=== PATIENT | female | born 1965 | race Caucasian/White ===

== ENCOUNTER 2017-02-08 14:05 | Inpatient (IN) | payer OTHER ==
--- NOTE | ~2017-02-08 | EGD ---
EGD REPORT [facility] [address] [address] NAME: RHODA ESTRADA : 61 STATUS : ADM IN PAT#: [id number] AGE: 51 ADM/REG DATE : 02/08/17 MR#: [id number] REPORT SERV DATE: 02/16/17 DICTATED BY: LIANNE SHEPPARD DATE: 02/16/17 REPORT STATUS : Draft [facility] DATE: 02/16/17 Pulmonology Patient Name: Rhoda Estrada Procedure Date: 02/16/2017 11:04 AM Date of : 1965 Attending MD: KARAN SHEPPARD MD Procedure Date No Time: 02/16/2017 Procedure: EBUS Navigational Bronchoscopy Indications: Left lower lobe mass, Mediastinal adenopathy Providers: KARAN SHEPPARD MD Referring MD: WAQAS BIRD MD Medicines: Lidocaine 2% 20 mL Complications: No immediate complications Procedure: Pre-Anesthesia Assessment: - A History and Physical has been performed. Patient meds and allergies have been reviewed. The risks and benefits of the procedure and the sedation options and risks were discussed with the patient. All questions were answered and informed consent was obtained. Patient identification and proposed procedure were verified prior to the procedure by the physician and the nurse in the pre-procedure area in the procedure room. Mental Status Examination: alert and oriented. Airway Examination: normal oropharyngeal airway. Respiratory Examination: clear to auscultation. CV Examination: normal and RRR, no murmurs, no S3 or S4. ASA Grade Assessment: IV - A patient with severe systemic disease that is a constant threat to life. After reviewing the risks and benefits, the patient was deemed in satisfactory condition to undergo the procedure. The anesthesia plan was to use general anesthesia. Immediately prior to administration of medications, the patient was re-assessed for adequacy to receive sedatives. The heart rate, respiratory rate, oxygen saturations, blood pressure, adequacy of pulmonary ventilation, and response to care were monitored throughout the procedure. The physical status of the patient was re-assessed after the procedure. After obtaining informed consent, the BF [id number] was introduced through the mouth, via the endotracheal tube (the patient was intubated for the procedure) and advanced to the tracheobronchial tree. the Bronchoscope was introduced through the mouth, via the endotracheal tube (the patient was intubated for the procedure) and advanced to the tracheobronchial tree. The procedure was accomplished without difficulty. The patient EGD REPORT [address] [address] NAME: RHODA ESTRADA : 61 STATUS : ADM IN PAT#: [id number] AGE: 51 ADM/REG DATE : 02/08/17 MR#: [id number] REPORT SERV DATE: 02/16/17 DICTATED BY: LIANNE SHEPPARD DATE: 02/16/17 REPORT STATUS : Draft TRANSCRIBED BY: [employer] DATE: 02/16/17 tolerated the procedure well. The patient tolerated the procedure well. Findings: The endotracheal tube is in good position. The visualized portion of the trachea is of normal caliber. The janet is sharp. The tracheobronchial tree was examined to at least the first subsegmental level. Bronchial mucosa and anatomy are normal; there are no endobronchial lesions, and no secretions. EBUS TBNA of lymph node level 11R x 4 passes for cytology EBUS TBNA of lymph node level 7 x 4] passes for cytology EBUS TBNA of lymph node level 11L x 10 passes for cytology Using SuperDimension Edge catheter 180, peripheral probe EBUS 17s, and fluoroscopy, I performed the following biopsies: LLL lung nodule transbronchial needle aspirates x 6 passes for cytology LLL lung nodule transbronchial brush biopsy x 3 pass for cytology and cultures LLL lung nodule transbronchial forcep biopsies x 6 passes for histopathology Bronchoalveolar lavage was performed in the left lower lobe of the lung and sent for routine cytology. 180 mL of fluid were instilled. 30 mL were returned. The return was blood-tinged and cellular. Bronchoalveolar lavage was performed in the right upper lobe of the lung and sent for cell count, cytology, bacterial culture, viral smears \\T\\ culture, and fungal and AFB analysis. 60 mL of fluid were instilled. 30 mL were returned. Impression: Rapid On-Site Evaluation (JONY): Preliminary cytology is "atypical, favor reactive inflammatory changes, no tumor seen" (final results are pending). Recommendation: - Await test results. - Chest X-ray. - Follow up with pulmonary consults tomorrow. - Continue current treatment. Attending Participation: I personally performed the entire procedure. KARAN SHEPPARD MD 02/16/2017 12:42 PM This report has been signed electronically. Number of Addenda: 0 Note Initiated On: 02/16/2017 11:04 AM [address] [address]
--- NOTE | ~2017-02-08 | CN ---
Consultation Report [facility] [address] [place]. [address] NAME: KRISTEN ESTRADA : 61 STATUS : ADM IN [facility]#: [id number] AGE: 51 ADM/REG DATE : 02/08/17 MR#: [id number] REPORT SERV DATE: 02/15/17 DICTATED BY: JENNIFER BIRD DATE: 02/15/17 REPORT STATUS : Draft TRANSCRIBED BY: MODL DATE: 02/15/17 PULMONARY CONSULTATION DATE OF CONSULTATION: 02/15/2017 REASON FOR CONSULTATION: Abnormal CT scan of the chest. HISTORY OF PRESENT ILLNESS: Ms. Estrada is a 51-year-old white female, smoker with a history of COPD and organizing pneumonia on biopsy of a right lung nodule done on 04/22/2015, who was admitted with pneumonia and a COPD exacerbation. Pulmonary was consulted secondary to mediastinal lymphadenopathy and lung nodules noted on a CT angiogram of the chest done this admission. The patient is complaining of poor appetite without weight loss as well as malaise, increased dyspnea, and cough for the past several months. She states she had a marked increase in her dyspnea and developed a cough productive of yellow sputum just prior to admission. Her symptoms have improved markedly since she was hospitalized after treating with bronchodilators, systemic and nebulized steroids, as well as antibiotics. As an outpatient, the patient was poorly compliant with her pulmonary medications. She states she took Spiriva and Combivent irregularly due to medication expense. As noted above, she had a CT-guided biopsy of a right lung nodule done on 04/22/2015. That biopsy revealed organizing pneumonia. She did not have outpatient followup with Pulmonary, but did have a repeat CT angiogram of the chest done on 05/26/2015 when she was admitted with dyspnea. At that time, she was noted to have scattered focal areas of ground-glass opacities. She did not have followup chest imaging as recommended. She denies any lung cancer screening or CT scans of the chest. She is not followed by a power shovel operator outpatient. PAST MEDICAL HISTORY: 1. Previous CT-guided biopsy that revealed organizing pneumonia as noted above. 2. Smoking/tobacco addiction. 3. COPD. 4. Hypertension. 5. GERD. 6. Previous appendectomy. 7. Previous tubal ligation. 8. Hypothyroidism. 9. Hyperlipidemia. 10.Anxiety/depression. FAMILY HISTORY: She denies a family history of pulmonary diseases, but states she suspects her smoker son has COPD. Consultation Report [address] [place]. [address] NAME: KRISTEN ESTRADA : 61 STATUS : ADM IN PAT#: [id number] AGE: 51 ADM/REG DATE : 02/08/17 MR#: [id number] REPORT SERV DATE: 02/15/17 DICTATED BY: JENNIFER BIRD DATE: 02/15/17 REPORT STATUS : Draft TRANSCRIBED BY: LILIANA DATE: 02/15/17 SOCIAL HISTORY: Ms. Estrada currently smokes one and a half packs of cigarettes per day. She states she has smoked up to two packs of cigarettes per day and has been a smoker for 39 years. She states she has a history of exposure to dust and chemicals associated with prior employment in a [employer] and then in the [employer]. She denies ethanol intake, past/present drug use, or chewing tobacco. She is and has two living sons and one son who in a motor vehicle accident. MEDICATIONS: Outpatient and inpatient medications were reviewed and are as documented in the record. As noted above, she was on Spiriva and Combivent intermittently as an outpatient. ALLERGIES: SHE DENIES MEDICATION ALLERGIES. REVIEW OF SYSTEMS: A 12-point system review was conducted and is remarkable for the symptoms as described in the history of present illness. PHYSICAL EXAMINATION: VITAL SIGNS: Temperature 97.8 degrees, heart rate 88, blood pressure 134/86, respiratory rate 17, oxygen saturation 93% on supplemental oxygen at a flow rate of 3 L/minute. GENERAL: Ill-appearing white female. Alert, oriented, in no apparent distress. HEENT: Normocephalic and atraumatic. There is no scleral icterus. The conjunctivae are clear. The oropharynx is clear. Poor dentition with numerous missing teeth. NECK: Supple. No lymphadenopathy was noted. LUNGS: There were diminished breath sounds at both bases. There are faint end-expiratory wheezes throughout. There are minimal bibasilar crackles. No rhonchi were noted. HEART: Regular rate and rhythm. No ectopy. ABDOMEN: Soft, nontender, nondistended. There are normal bowel sounds in all four quadrants. NEUROLOGICAL: A limited exam was conducted and was found to be nonfocal. BILATERAL EXTREMITIES: No clubbing, cyanosis, or edema was noted. SKIN: No rashes were noted. IMAGING: The chest x-ray done this admission revealed a right upper lobe infiltrate with left hilar atelectasis/consolidation. The CT angiogram of the chest done on 02/14/2017 revealed bilateral hilar lymphadenopathy, right upper lobe nodular infiltrate, left apical nodule and a left lower lobe nodular infiltrate, suspicious for carcinoma. ASSESSMENT AND PLAN: Ms. Estrada is a 51-year-old white female, smoker with an abnormal CT scan of the chest, suspicious for cancer as described above. PLAN: Bronchoscopy per interventional power shovel operator, Dr. Domenico Campuzano, hopefully to be done tomorrow. The patient was counseled extensively regarding the procedure and possible Consultation Report [address] [address] NAME: KRISTEN ESTRADA : 61 STATUS : ADM IN [facility]#: [id number] AGE: 51 ADM/REG DATE : 02/08/17 MR#: [id number] REPORT SERV DATE: 02/15/17 DICTATED BY: JENNIFER BIRD DATE: 02/15/17 REPORT STATUS : Draft TRANSCRIBED BY: MODL DATE: 02/15/17 complications. She does agree to proceed with bronchoscopy. With regard to her COPD and recent pneumonia, she is doing well with her current treatment. She is on Brovana via nebulization here as an inpatient. Recommend discontinuing Brovana and starting her on Anoro daily and would discharge her on this medication. We will ask the case sealer to assist the patient in obtaining coupons for the medication. She was counseled extensively regarding the importance of compliance with her medications. She should be discharged with an albuterol rescue inhaler. Recommend home oxygen evaluation as she remains hypoxic despite adequate treatment for COPD and pneumonia. She was counseled for approximately five minutes regarding the importance of smoking cessation. Further recommendations to follow after bronchoscopy results are available. PS/MODL Jennifer Bird M.D. / [id number] CC: Oneil Mason MD
--- NOTE | ~2017-02-08 | IDS ---
Interim Discharge Summary [facility] [address] [place]. [address] NAME: KRISTEN GALVIN : 61 STATUS : ADM IN [facility]#: [id number] AGE: 51 ADM/REG DATE : 02/08/17 MR#: [id number] REPORT SERV DATE: 02/13/17 DICTATED BY: CECILLE IZAGUIRRE DATE: 02/13/17 REPORT STATUS : Draft TRANSCRIBED BY: MODL DATE: 02/13/17 ADMISSION DATE: 02/08/2017 DISCHARGE DATE: DIAGNOSES: 1. Chronic obstructive pulmonary disease exacerbation. 2. Pneumonia. 3. Bxwyy-np-wprxjix hypoxic and hypercapnic respiratory failure. 4. Hypertension. 5. Hypothyroidism. 6. Tobacco abuse. HOSPITALISTS: Dr. Montez, Dr. Andrew Rubio, Dr. Izaguirre. HOSPITAL COURSE: Please see H and P dictated by Dr. Montez. This is a 51-year-old female with a past medical history of COPD and hypertension, and tobacco abuse ongoing, presented with shortness of breath and dyspnea on exertion. She was admitted to the Hospitalist Service with COPD exacerbation and signs of pneumonia. She was started on antibiotics and bronchodilators as well as steroid. The patient had slow progression, did require BiPAP intermittently, and now has been tapered off BiPAP. She did have some intermittent anxiety, which worsened some of her respiratory issues. She was initially treated by Dr. Rubio, and later by Dr. Izaguirre initiating on 02/11/2017. The patient is improving and has had a slow progression, but overall is improved. Also, has been educated on tobacco abuse. She will require home O2. The nurses have been ambulating the patient in the hallway as tolerated. Expect possible discharge tomorrow based on patient's clinical status. The patient will be followed by Dr. Mason, who will attend to the patient's care. [facility]/LILIANA Cecille Izaguirre M.D. / [id number] CC: Cecille Izaguirre M.D.
--- NOTE | ~2017-02-08 | HP ---
History And Physical [facility] [id number] [place]. [address] NAME: KRISTEN GALVIN : 61 STATUS : ADM Cecily PAT#: [id number] AGE: 51 ADM/REG DATE : 02/08/17 MR#: [id number] REPORT SERV DATE: 02/08/17 DICTATED BY: SAMANTHA MONTEZ DATE: 02/08/17 REPORT STATUS : Draft TRANSCRIBED BY: MODMike DATE: 02/08/17 DATE OF ADMISSION: 02/08/2017 CHIEF COMPLAINT: Shortness of breath. HISTORY OF PRESENT ILLNESS: The patient is a 51-year-old female with past medical history of COPD, non-O2 dependent, additionally one and half pack per day smoking history, who presents after having continuous and progressive shortness of breath despite using inhaler. The patient reports that her symptoms have been constant, moderate severity with decreased exercise tolerance. No pain or radiating symptoms but did have increased shortness of breath with mild sputum production. No fevers, chills, nausea, or vomiting. Symptoms are worsening with deep breathing with audible wheeze. There are no relieving symptoms. The patient does report symptoms are still currently present, although she does use an inhaler. She has used multiple different inhalers which son at bedside reports she has required multiple inhalers faster than she should probably require. REVIEW OF SYSTEMS: A 10-point review of systems negative except for that noted in the HPI. PAST MEDICAL HISTORY: Recently did have pneumonia shot, does have history of COPD, hypertension, reflux, depression, anxiety, hypothyroidism, and arthritis. SURGICAL HISTORY: Tubal and appendectomy. FAMILY HISTORY: Unknown as the patient's mother at 2, unaware of father's history. SOCIAL HISTORY: No alcohol, is 1-1/2 pack per day smoker. No illicits. MEDICATIONS: Still pending. Does use albuterol. O2 sats 94% on 2 L. PHYSICAL EXAMINATION: VITAL SIGNS: Blood pressure 110/81, temperature 97.6, pulse 98, respirations 18. GENERAL: Elderly than stated age but in no acute distress. EYES: No scleral icterus. EOMI. ENT: Nares patent. Tongue midline. RESPIRATORY: Bilateral diffuse wheeze with rhonchi. CHEST: Mildly increased AP diameter. CV: Tachycardic, no rubs. No pedal edema. GI: Soft, nontender, nondistended. Bowel sounds positive. : Deferred. MUSCULOSKELETAL: Moves all extremities x4. SKIN: Warm, dry with wrinkling, does have wrinkling of facial skin also. LYMPH: No cervical or supraclavicular lymphadenopathy. HEME: No bleeding or bruising. NEURO: Alert and oriented. No asterixis. PSYCH: Appropriate mood and affect, pleasant but does report that she is somewhat tired. History And Physical [address] [address] NAME: KRISTEN GALVIN : 61 STATUS : ADM Cecily PAT#: [id number] AGE: 51 ADM/REG DATE : 02/08/17 MR#: [id number] REPORT SERV DATE: 02/08/17 DICTATED BY: SAMANTHA MONTEZ DATE: 02/08/17 REPORT STATUS : Draft TRANSCRIBED BY: LILIANA DATE: 02/08/17 DATA: EKG; heart rate of 102 with QTc 484, right axis changes. Also noted in February of 2016. Labs reveal BNP 180.5. Sodium 129, potassium 3.6, chloride 91, bicarb 31, BUN creatinine 5 and 0.46, glucose 103, troponin negative. Magnesium 2.1. Calcium 9.1. CBC grossly within normal limits. Portable chest, there is new to February 2016 a right upper lobe pneumonia, increased pulmonary markings, possible congestive failure. The pH 7.39, pCO2 of 51, pO2 of 62, bicarb 30.4. ASSESSMENT AND PLAN: 1. Acute chronic obstructive pulmonary disease exacerbation. 2. Right pneumonia, new. 3. Hypertension. 4. Tobacco use. 5. Noncompliance. 6. Hypothyroidism. 7. Hyponatremia. PLAN: 1. For acute COPD exacerbation, I counseled again to stop smoking. Placed on O2 DuoNeb, flutter valve, IV steroids, IV Levaquin for anti-inflammatory component additionally. Chest x-ray noted for right upper lobe pneumonia which additionally could be worsening symptoms, has history of pulmonary nodules. 2. Right pneumonia, IV Levaquin, cultures pending. 3. Hypertension, on medications. 4. Tobacco use. Nicotine patch. 5. Noncompliance history. Does have poor technique. We will have RT discuss inhaler technique as the patient does have occasional mild spots, two small, what appears to be albuterol inhaler spots on the upper mouth. We will need to continue reinforcement, will need spacer. Additionally add flutter valve. 6. Hypothyroidism, on replacement. 7. Hyponatremia. Check osmolality with gentle IV fluids. However, repeat sodium in 6 to 8 hours to monitor for response and get urine and serum osmolality and sodium and creatinine, possible SIADH component given fairly chronic pulmonary history. All questions answered with the patient and discussed with family at bedside. DDN/MODL Samantha Montez MD / [id number] CC: History And Physical [address] [address] NAME: KRISTEN GALVIN : 61 STATUS : ADM Cecily PAT#: [id number] AGE: 51 ADM/REG DATE : 02/08/17 MR#: [id number] REPORT SERV DATE: 02/08/17 DICTATED BY: SAMANTHA MONTEZ DATE: 02/08/17 REPORT STATUS : Draft TRANSCRIBED BY: MODL DATE: 02/08/17 Samantha Montez MD
--- NOTE | ~2017-02-08 | DS ---
Discharge Summary [facility] [address] [place]. [address] NAME: KRISTEN GALVIN : 61 STATUS : DIS IN PAT#: [id number] AGE: 51 ADM/REG DATE : 02/08/17 MR#: [id number] REPORT SERV DATE: 02/18/17 DICTATED BY: FOX MASON DATE: 02/17/17 REPORT STATUS : Draft TRANSCRIBED BY: MODL DATE: 02/17/17 ADMISSION DATE: 02/08/2017 DISCHARGE DATE: 02/17/2017 REASON FOR ADMISSION: Acute on chronic COPD exacerbation and acute hypoxic hypercapnic respiratory failure. HISTORY OF PRESENT ILLNESS: Please refer Dr. Hector Montez's history and physical on 02/08/2017, for complete details regarding the patient's admission. In brief, the patient was admitted to the Hospital Service for management of the above. HOSPITAL COURSE: From admission to 02/13/2017, please refer Dr. Margy Bustillo's interim summary. In brief, Dr. Bustillo had managed the patient for the first several days and diagnosed with acute on chronic COPD exacerbation, pneumonia, and acute hypoxic and hypercapnic respiratory failure. She was started on IV steroids and doxycycline. She has been on intermittent BiPAP during that time. She was clinically improving. Hospital course from 02/14/2017 to present, I assumed care of this patient from Dr. Bustillo; at which point in time, the patient had been on 3 to 4 L of nasal cannula, she would desaturate pretty quickly with ambulation. Given the fact that she had been hospitalized for five days on doxycycline and high-dose steroids and requiring a high amount of oxygen, I obtained a CT angio of her chest on 02/14/2017, which showed suspicious spiculated irregular nodule infiltrate, superior segment of the left lower lobe with extension up to the major fissure with tenting of adjacent major fissure. There is a left infrahilar and right hilar adenopathy which may represent metastatic disease versus reactive adenopathy. There is an irregular nodular infiltrate in the right upper lobe with central lucency considered suspicious for malignancy. Given these findings, the fact that she had ongoing tobacco abuse, Pulmonary Medicine was consulted, Dr. Campuzano performed an EBUS navigation bronchoscopy on 02/16/2017, which demonstrated mostly inflammatory changes. No malignancy was seen. However, final pathology report is pending. We were able to wean down the patient to 2 L. her oxygenation had improved. I did increase her steroids from 40 mg of prednisone to 60 mg of prednisone. The patient has reached maximal hospitalization. She did qualify for oxygen as her O2 sats were 81% on room air. We will be discharging her in stable condition to follow up with Dr. Martinez in 10 days and to continue high-dose steroids. DISCHARGE DIAGNOSES: 1. Acute hypoxic and hypercapnic respiratory failure, resolving, but now on 2 L of nasal cannula. 2. Acute on chronic obstructive pulmonary disease exacerbation. 3. Ongoing tobacco abuse. 4. Possible organizing pneumonia flare. 5. Spiculated nodule. 6. Generalized anxiety disorder. 7. Hypothyroidism. 8. Hypertension. Discharge Summary [address] [address] NAME: KRISTEN GALVIN : 61 STATUS : DIS IN PAT#: [id number] AGE: 51 ADM/REG DATE : 02/08/17 MR#: [id number] REPORT SERV DATE: 02/18/17 DICTATED BY: FOX MASON DATE: 02/17/17 REPORT STATUS : Draft TRANSCRIBED BY: LILIANA DATE: 02/17/17 PROCEDURES: Include chest x-ray and CT angio of the chest. CONSULTATION: With Dr. Martinez and Dr. Campuzano, EBUS bronchoscopy. DISCHARGE MEDICATIONS: Include methadone 50 mg once a day, Spiriva daily, Anoro Ellipta 62.5/25 mcg one puff daily, prednisone 60 mg once a day until seen by Dr. Martinez, and ProAir p.r.n. for wheezing. The patient will follow up Dr. Martinez in 10 days. Spending over 30 minutes discharge planning and coordination of care. She will also be arranged with home oxygen. HATTIE/LILIANA Fox Mason MD / [id number] CC: MD Jennifer Ramos M.D.
[2017-02-08 14:01] LABS: ALLENS TEST Pos; BE (BASE EXCESS) 4.2 MEQ/L (0 +/- 2.5); CARBOXYHEMOGLOBIN 10.3 % (0-3); DEVICE NC; HCO3 (ACTUAL BICARBONATE) 30.4 MEQ/L (23-27); HEMOBLOGIN CONTENT 15.2 G/DL (12-16); INSTRUMENT SERIAL # 8087; O2 CONTENT 17.7 VOL% (18-24); OPERATOR ID 35188; PCO2 (CO2 TENSION) 51 MMHG (35-45); PO2 (O2 TENSION) 62 MMHG (79-93); SAMPLE Arterial; pH 7.39 (7.37-7.43)
[~2017-02-08 14:05] MED LIST: BLUE INH; BP MEDICATION PO; CHOLESTEROL MED PO; COMBIVENT RESPIM4 GM PO; DULERA 200 MCG/13 GM INH; HYCODAN1 M1 PO; LEVAQUIN750 MG PO; LEVOTHROID150 MCG PO; LEVOTHYROXIN150 MCG PO; LIPITOR80 MG PO; NORCO1 TA1 PO; P1 PO; P10 PO; P20 PO; PROVHFA INH; SINGULAIR1 PO; SPIRIVA INH; THYROID MEDICATION PO; TRAZ100 PO; VENTOLIN HFA INH; VERELAN120 MG PO; ZOL100 PO; ZOLOFT PO
[2017-02-08 14:42] LABS: BASOPHILS 0.1 %; BASOPHILS ABSOLUTE 0.01 10/3/uL (0.0-0.16); EOSINOPHILS 0 %; ER CBC TAT 0 Hrs 07 Mins; HEMATOCRIT 44.1 % (36.0-48.0); HEMOGLOBIN 15.5 g/dL (12.0-16.0); IMMATURE GRANULOCYTES 0.2 %; IMMATURE GRANULOCYTES ABSOLUTE 0.02 10/3/uL (0.0-0.11); LYMPHOCYTES 9.5 %; LYMPHOCYTES ABSOLUTE 0.82 10/3/uL (0.67-4.30); MEAN CORPUS HGB CONC 35.1 g/dL (32.0-36.0); MEAN CORPUSCULAR HEMOGLOB 32.5 pg (26.0-34.0); MEAN CORPUSCULAR VOLUME 92.5 fL (80-100); MEAN PLATELET VOLUME 9.9 fL (9.2-13.0); MONOCYTES 6.1 %; MONOCYTES ABSOLUTE 0.53 10/3/uL (0.21-1.20); NEUTROPHILS 84.1 %; NEUTROPHILS ABSOLUTE 7.28 10/3/uL (2.02-8.40); PLATELET COUNT 261 10/3/uL (150-400); RBC DISTRIBUTION WIDTH 13.4 % (12.0-16.0); RED CELL COUNT 4.77 10/6/uL (4.0-5.6); WHITE BLOOD CELLS 8.7 10/3/uL (4.5-10.5)
[2017-02-08 14:43] LABS: MANUAL DIFF NO %
[2017-02-08 14:49] LABS: PARTIAL THROMBO TIME 34.2 SEC (22.5-37.2); PROTIME (NOT ORD) 12.9 SEC (12.0-14.5)
[2017-02-08 14:57] LABS: BUN (BLOOD UREA NITROGEN) 5 MG/DL (6-23); CALCIUM, SERUM 9.1 MG/DL (8.5-10.4); CHEST PAIN PROFILE TAT 0 Hrs 22 Mins; CHLORIDE, SERUM 91 MMOL/L (96-112); CREATININE 0.46 MG/DL (0.55-1.02); GFR AFRICAN AMERICAN 132 ML/MIN (>=60); GFR NON AFRICAN AMERICAN 114 ML/MIN (>=60); POTASSIUM, SERUM 3.6 MMOL/L (3.5-5.3); SODIUM, SERUM 129 MMOL/L (135-148); TROPONIN I <0.02 NG/ML (<0.05)
[2017-02-08 15:01] LABS: CO2 (CARBON DIOXIDE) 31 MMOL/L (24-34); GLUCOSE, SERUM 103 MG/DL (60-99)
[2017-02-08] MEDS ORDERED: PROVHFA INH (16:10)
[2017-02-08] MEDS ORDERED: SPIRIVA INH (16:11)
[2017-02-08] MEDS ORDERED: METHATAB10 PO (16:16)
[2017-02-08 19:00] LABS: ASCORBIC ACID (UR NOT ORDER) NEG (NEG); BILIRUBIN, URINE NEGATIVE (NEG); KETONE, URINE NEGATIVE (NEG); LEUKOCYTE ESTERASE(NOT OR NEG (NEG); WBC (NOT ORDERED) (RFLEX) < 1 (0-5)
[2017-02-08 20:36] LABS: CREATININE, URINE 19.6 MG/DL
[2017-02-08 22:52] LABS: BUN (BLOOD UREA NITROGEN) 5 MG/DL (6-23); CALCIUM, SERUM 8.5 MG/DL (8.5-10.4); CHLORIDE, SERUM 93 MMOL/L (96-112); CO2 (CARBON DIOXIDE) 29 MMOL/L (24-34); CREATININE 0.41 MG/DL (0.55-1.02); GFR AFRICAN AMERICAN 137 ML/MIN (>=60); GFR NON AFRICAN AMERICAN 118 ML/MIN (>=60); GLUCOSE, SERUM 87 MG/DL (60-99); POTASSIUM, SERUM 4.2 MMOL/L (3.5-5.3); SODIUM, SERUM 132 MMOL/L (135-148)
[2017-02-09 10:12] LABS: ULTRASENSITIVE TSH 1.92 MCIU/ML (0.358-3.740)
[2017-02-09 12:11] LABS: PROCALCITONIN 0.08 ng/mL (<0.5)
[2017-02-09 19:31] LABS: INFLUENZA A SCREEN NEGATIVE (NEGATIVE); INFLUENZA B SCREEN NEGATIVE (NEGATIVE)
[2017-02-10 07:05] LABS: BASOPHILS 0.1 %; BASOPHILS ABSOLUTE 0.01 10/3/uL (0.0-0.16); EOSINOPHILS 0 %; HEMOGLOBIN 15.7 g/dL (12.0-16.0); IMMATURE GRANULOCYTES 0.3 %; IMMATURE GRANULOCYTES ABSOLUTE 0.03 10/3/uL (0.0-0.11); LYMPHOCYTES ABSOLUTE 0.31 10/3/uL (0.67-4.30); MEAN CORPUSCULAR HEMOGLOB 31.3 pg (26.0-34.0); MONOCYTES 6.1 %; MONOCYTES ABSOLUTE 0.62 10/3/uL (0.21-1.20); NEUTROPHILS 90.5 %; NEUTROPHILS ABSOLUTE 9.25 10/3/uL (2.02-8.40); PLATELET COUNT 326 10/3/uL (150-400); RBC DISTRIBUTION WIDTH 13.3 % (12.0-16.0); RED CELL COUNT 5.01 10/6/uL (4.0-5.6); WHITE BLOOD CELLS 10.2 10/3/uL (4.5-10.5)
[2017-02-10 07:08] LABS: HEMATOCRIT 48.6 % (36.0-48.0); MANUAL DIFF NO %; MEAN CORPUS HGB CONC 32.3 g/dL (32.0-36.0)
[2017-02-10 07:18] LABS: BUN (BLOOD UREA NITROGEN) 4 MG/DL (6-23); CHLORIDE, SERUM 93 MMOL/L (96-112); CREATININE 0.53 MG/DL (0.55-1.02); GFR AFRICAN AMERICAN 126 ML/MIN (>=60); GFR NON AFRICAN AMERICAN 108 ML/MIN (>=60); POTASSIUM, SERUM 4.1 MMOL/L (3.5-5.3); SGOT(AST) 94 U/L (5-40); SGPT(ALT) 34 U/L (5-65); SODIUM, SERUM 135 MMOL/L (135-148); TOTAL PROTEIN 7.4 G/DL (6.0-8.5)
[2017-02-10 07:19] LABS: A/G RATIO 0.6 (0.7-1.9); ALBUMIN 2.7 G/DL (3.5-5.0); ALKALINE PHOSPHATASE 134 U/L (45-117); CO2 (CARBON DIOXIDE) 34 MMOL/L (24-34); GLOBULIN 4.7 G/DL (2.5-4.1); GLUCOSE, SERUM 113 MG/DL (60-99); TOTAL BILIRUBIN 0.2 MG/DL (0-1.2)
[2017-02-10 09:42] LABS: BE (BASE EXCESS) 4.5 MEQ/L (0 +/- 2.5); CARBOXYHEMOGLOBIN 0.5 % (0-3); DEVICE Nasal Cannula 3l; HCO3 (ACTUAL BICARBONATE) 31.6 MEQ/L (23-27); HEMOBLOGIN CONTENT 15.9 G/DL (12-16); INSTRUMENT SERIAL # 35151; METHEMOGLOBIN 0.4 % (0-3); O2 CONTENT 18.9 VOL% (18-24); OPERATOR ID 14472; PCO2 (CO2 TENSION) 56 MMHG (35-45); PO2 (O2 TENSION) 52 MMHG (79-93); SAMPLE Arterial; pH 7.37 (7.37-7.43)
[2017-02-11 04:41] LABS: BE (BASE EXCESS) 7.7 MEQ/L (0 +/- 2.5); CARBOXYHEMOGLOBIN 0.5 % (0-3); DEVICE NC; HCO3 (ACTUAL BICARBONATE) 35.3 MEQ/L (23-27); HEMOBLOGIN CONTENT 16.8 G/DL (12-16); INSTRUMENT SERIAL # 11843; METHEMOGLOBIN 0.3 % (0-3); O2 CONTENT 20.5 VOL% (18-24); OPERATOR ID 32193; PCO2 (CO2 TENSION) 60 MMHG (35-45); PO2 (O2 TENSION) 55 MMHG (79-93); SAMPLE Arterial; pH 7.39 (7.37-7.43)
[2017-02-11 06:10] LABS: BASOPHILS 0 %; EOSINOPHILS 0 %; HEMATOCRIT 46.2 % (36.0-48.0); HEMOGLOBIN 15.1 g/dL (12.0-16.0); IMMATURE GRANULOCYTES 0.6 %; IMMATURE GRANULOCYTES ABSOLUTE 0.04 10/3/uL (0.0-0.11); LYMPHOCYTES 4.5 %; LYMPHOCYTES ABSOLUTE 0.29 10/3/uL (0.67-4.30); MEAN CORPUS HGB CONC 32.7 g/dL (32.0-36.0); MEAN CORPUSCULAR HEMOGLOB 31.5 pg (26.0-34.0); MEAN CORPUSCULAR VOLUME 96.3 fL (80-100); MEAN PLATELET VOLUME 9.9 fL (9.2-13.0); MONOCYTES 7.2 %; MONOCYTES ABSOLUTE 0.46 10/3/uL (0.21-1.20); NEUTROPHILS 87.7 %; NEUTROPHILS ABSOLUTE 5.64 10/3/uL (2.02-8.40); PLATELET COUNT 284 10/3/uL (150-400); RBC DISTRIBUTION WIDTH 13.4 % (12.0-16.0); WHITE BLOOD CELLS 6.4 10/3/uL (4.5-10.5)
[2017-02-11 06:14] LABS: MANUAL DIFF NO %
[2017-02-11 06:26] LABS: A/G RATIO 0.6 (0.7-1.9); ALBUMIN 2.7 G/DL (3.5-5.0); ALKALINE PHOSPHATASE 136 U/L (45-117); BUN (BLOOD UREA NITROGEN) 4 MG/DL (6-23); CALCIUM, SERUM 8.9 MG/DL (8.5-10.4); CHLORIDE, SERUM 92 MMOL/L (96-112); CO2 (CARBON DIOXIDE) 36 MMOL/L (24-34); CREATININE 0.53 MG/DL (0.55-1.02); GFR AFRICAN AMERICAN 126 ML/MIN (>=60); GFR NON AFRICAN AMERICAN 108 ML/MIN (>=60); GLOBULIN 4.4 G/DL (2.5-4.1); GLUCOSE, SERUM 131 MG/DL (60-99); POTASSIUM, SERUM 4.3 MMOL/L (3.5-5.3); SGOT(AST) 125 U/L (5-40); SGPT(ALT) 47 U/L (5-65); SODIUM, SERUM 136 MMOL/L (135-148); TOTAL BILIRUBIN 0.3 MG/DL (0-1.2); TOTAL PROTEIN 7.1 G/DL (6.0-8.5)
[2017-02-14 16:29] LABS: CREATININE 0.73 MG/DL (0.55-1.02)
[2017-02-16 07:11] LABS: BASOPHILS 0.1 %; BASOPHILS ABSOLUTE 0.01 10/3/uL (0.0-0.16); EOSINOPHILS 0.5 %; EOSINOPHILS ABSOLUTE 0.05 10/3/uL (0.0-0.53); HEMATOCRIT 46.6 % (36.0-48.0); HEMOGLOBIN 15.4 g/dL (12.0-16.0); IMMATURE GRANULOCYTES 1.2 %; IMMATURE GRANULOCYTES ABSOLUTE 0.13 10/3/uL (0.0-0.11); LYMPHOCYTES 22.5 %; LYMPHOCYTES ABSOLUTE 2.41 10/3/uL (0.67-4.30); MEAN CORPUSCULAR HEMOGLOB 31.2 pg (26.0-34.0); MEAN CORPUSCULAR VOLUME 94.5 fL (80-100); MEAN PLATELET VOLUME 9.2 fL (9.2-13.0); MONOCYTES 6.6 %; MONOCYTES ABSOLUTE 0.71 10/3/uL (0.21-1.20); NEUTROPHILS 69.1 %; NEUTROPHILS ABSOLUTE 7.41 10/3/uL (2.02-8.40); PLATELET COUNT 312 10/3/uL (150-400); RBC DISTRIBUTION WIDTH 13.7 % (12.0-16.0); RED CELL COUNT 4.93 10/6/uL (4.0-5.6)
[2017-02-16 07:12] LABS: WHITE BLOOD CELLS 10.7 10/3/uL (4.5-10.5)
[2017-02-16 07:13] LABS: MANUAL DIFF NO %
[2017-02-16 07:16] LABS: INTERNATIONAL NORMAL RATI 1.1 UNITS (-); PARTIAL THROMBO TIME 24.8 SEC (22.5-37.2); PROTIME (NOT ORD) 13.7 SEC (12.0-14.5)
[2017-02-16 07:24] LABS: BUN (BLOOD UREA NITROGEN) 7 MG/DL (6-23); CALCIUM, SERUM 8.5 MG/DL (8.5-10.4); CHLORIDE, SERUM 99 MMOL/L (96-112); CO2 (CARBON DIOXIDE) 36 MMOL/L (24-34); CREATININE 0.75 MG/DL (0.55-1.02); GFR AFRICAN AMERICAN 105 ML/MIN (>=60); GFR NON AFRICAN AMERICAN 91 ML/MIN (>=60); POTASSIUM, SERUM 4.1 MMOL/L (3.5-5.3); SODIUM, SERUM 141 MMOL/L (135-148)
[2017-02-16 07:26] LABS: GLUCOSE, SERUM 71 MG/DL (60-99)
[2017-02-16 13:26] LABS: ALLENS TEST Pos; BE (BASE EXCESS) 0.6 MEQ/L (0 +/- 2.5); CARBOXYHEMOGLOBIN 0.4 % (0-3); DEVICE SM; HCO3 (ACTUAL BICARBONATE) 27.5 MEQ/L (23-27); INSTRUMENT SERIAL # 11843; METHEMOGLOBIN 0.5 % (0-3); O2 CONTENT 23.6 VOL% (18-24); OPERATOR ID 19104; PCO2 (CO2 TENSION) 52 MMHG (35-45); PO2 (O2 TENSION) 164 MMHG (79-93); SAMPLE Arterial; pH 7.34 (7.37-7.43)
[2017-02-16 16:41] LABS: BD FL LYMPH (NOT ORD) 5 %; BD FL SOURCE (NOT ORD) BAL-RUL; BF BASO (NOT OF) 0 %; BF LARGE MONONUCLEAR 17 %; BF TOTAL CELL CT (NOT ORD 2433 /MM3; BODY FLUID EOS (NOT ORD) 0 %; BODY FLUID RBC (NOT ORD) 7000 /MM3; BODY FLUID SEG (NOT ORD) 78 %
[2017-02-16 16:43] LABS: BD FL LYMPH (NOT ORD) 14 %; BD FL SOURCE (NOT ORD) BAL-LLL; BF BASO (NOT OF) 0 %; BF LARGE MONONUCLEAR 34 %; BF TOTAL CELL CT (NOT ORD 1708 /MM3; BODY FLUID EOS (NOT ORD) 0 %; BODY FLUID RBC (NOT ORD) 20000 /MM3; BODY FLUID SEG (NOT ORD) 52 %
[2017-02-17 04:12] LABS: BE (BASE EXCESS) 8.3 MEQ/L (0 +/- 2.5); CARBOXYHEMOGLOBIN 1.1 % (0-3); HCO3 (ACTUAL BICARBONATE) 34.5 MEQ/L (23-27); HEMOBLOGIN CONTENT 15.2 G/DL (12-16); INSTRUMENT SERIAL # 8083; METHEMOGLOBIN 0.2 % (0-3); O2 CONTENT 20.7 VOL% (18-24); OPERATOR ID 17537; PCO2 (CO2 TENSION) 53 MMHG (35-45); PO2 (O2 TENSION) 97 MMHG (79-93); SAMPLE Arterial; pH 7.43 (7.37-7.43)
[2017-02-17] MEDS ORDERED: PREDNISONE PO (11:19)
[2017-02-17] MEDS ORDERED: ANOROELLIPTA INH (11:20)
[2017-02-17] MEDS ORDERED: ATV.5 PO (15:27)
[2017-06-18] MEDS ORDERED: SPIRIVA INH (09:51)
[2017-06-18] MEDS ORDERED: ACET500CAP PO (09:52)
[2017-06-18] MEDS ORDERED: ASA5GR PO (09:53)
[2017-06-18] MEDS ORDERED: HABIT21 TOP (09:54)
[2017-06-23] MEDS ORDERED: SUCR PO (17:10)
[2017-06-23] MEDS ORDERED: PROTONIX PO (17:10)
[2017-06-23] MEDS ORDERED: LEVAQUIN750 MG PO (17:18)
== END 2017-02-17 16:29 | disposition home or self-care (01) | DRG 189 ==
LOC: ER 14:05 → 5SO 15:45
PROVIDERS: Emergency Medicine; Hospitalist; Internal Medicine; Student in an Organized Health Care Education/Training Program
PROC: 0B9B8ZX Drainage of Left Lower Lobe Bronchus, Via Natural or Artificial Opening Endoscopic, Diagnostic (ICD-10-PCS; principal; 2017-02-16 11:47)
PROC: 0B948ZX Drainage of Right Upper Lobe Bronchus, Via Natural or Artificial Opening Endoscopic, Diagnostic (ICD-10-PCS; 2017-02-16 13:00)
DX: J96.21 Acute and chronic respiratory failure with hypoxia (principal); J18.9 Pneumonia, unspecified organism; J44.1 Chronic obstructive pulmonary disease with (acute) exacerbation; E87.1 Hypo-osmolality and hyponatremia; J96.22 Acute and chronic respiratory failure with hypercapnia; I10 Essential (primary) hypertension; F17.210 Nicotine dependence, cigarettes, uncomplicated; K21.9 Gastro-esophageal reflux disease without esophagitis; F32.9 Major depressive disorder, single episode, unspecified; F41.9 Anxiety disorder, unspecified; E03.9 Hypothyroidism, unspecified; M19.90 Unspecified osteoarthritis, unspecified site; Z90.49 Acquired absence of other specified parts of digestive tract; Z98.890 Other specified postprocedural states; Z91.19 Patient's noncompliance with other medical treatment and regimen; Z79.899 Other long term (current) drug therapy
CPT/HCPCS: 36600; 71010; 71275; 80048; 80053; 81001; 82330; 82565; 82570; 82803; 82805; 82947; 83735; 83880; 83930; 83935; 84132; 84145; 84295; 84300; 84443; 84484; 85014; 85025; 85610; 85730; 87015; 87040; 87070; 87102; 87116; 87205; 87449; 87804; 88112; 88172; 88173; 88177; 88305; 88333; 88341; 88342; 89051; 93005; 93306; 94640; 94660; 96374; 96375; 99285; A9270-GY; C1725; J1956; J2250; J2370; J2405; J2710; J2920; J2930; J3010; Q9967

== ENCOUNTER 2017-03-31 14:10 | Inpatient (IN) | payer OTHER ==
--- NOTE | ~2017-03-31 | IDS ---
Interim Discharge Summary [facility] [address] [place]. [address] NAME: KRISTEN GALVIN : 61 STATUS : ADM IN PAT#: [id number] AGE: 51 ADM/REG DATE : 03/31/17 MR#: [id number] REPORT SERV DATE: 04/06/17 DICTATED BY: LOR GUTIERREZ DATE: 04/06/17 REPORT STATUS : Draft TRANSCRIBED BY: MODL DATE: 04/06/17 ADMISSION DATE: 03/31/2017 DISCHARGE DATE: DATE OF TRANSFER TO THE ICU: 04/03/2017. DATE OF INTERIM SUMMARY: 04/06/2017. INTERIM DIAGNOSES: 1. Acute hypercapnic respiratory failure. 2. Acute chronic obstructive pulmonary disease exacerbation. 3. Chronic cryptogenic organizing pneumonia. 4. Small-cell lung cancer. 5. Pancytopenia. 6. Acute renal failure. 7. Acute encephalopathy. ICU COURSE: Please see dictated H and P for full patient presentation and history. BRIEF SUMMARY: The patient is a 51-year-old white female with past medical history of metastatic small cell lung cancer, followed by Dr. Juno Aquino as well as chronic COPD and cryptogenic organizing pneumonia. She was initially admitted to the Hospitalist Service back on 03/31/2017 with acute hypercapnic respiratory failure and acute COPD exacerbation. She was placed on empiric antibiotics at that time as well as steroids and bronchodilators. The patient also has chronic pain and was continued on her methadone as well as her other chronic narcotics. Apparently, the patient was having some bouts of hyperactive delirium overnight on 04/03/2017 and was given multiple doses of Ativan for agitation. Then early on the morning of 04/03/2017, she had worsening lethargy with worsening hypercapnic respiratory failure and had to be transferred to the ICU for continuous BiPAP. Her narcotics were briefly held as well as her benzodiazepine and she was controlled from an agitation standpoint with a Precedex drip. She remained on continuous BiPAP for approximately 24 hours with improvement in her hypercapnia and has since been able to come off continues BiPAP and now is using it only at night. From her COPD standpoint, we have continued her IV steroids as well as her bronchodilators. We are changing her Zosyn today to Levaquin and she had no growth so far of any pathogens. She had some mild acute renal failure, which has since resolved. Her encephalopathy has also resolved and she is now alert oriented x3 and much better from a neurologic standpoint. She was weaned off the Precedex drip yesterday. Today, she is stable and should be able to go out to the floor. We will hand over her care to the hospitalist when she does move out. Please call if you have any questions. OBDULIA/LILIANA Lor Gutierrez MD Interim Discharge Summary [address] [address] NAME: KRISTEN GALVIN : 61 STATUS : ADM IN PAT#: [id number] AGE: 51 ADM/REG DATE : 03/31/17 MR#: [id number] REPORT SERV DATE: 04/06/17 DICTATED BY: LOR GUTIERREZ DATE: 04/06/17 REPORT STATUS : Draft TRANSCRIBED BY: LILIANA DATE: 04/06/17 / [id number] CC: Navi Casillas II, MD UNKNOWN
--- NOTE | ~2017-03-31 | HP ---
History And Physical [id number] [place]. [address] NAME: KRISTEN GALVIN : 61 STATUS : ADM IN [facility]#: [id number] AGE: 51 ADM/REG DATE : 03/31/17 MR#: [id number] REPORT SERV DATE: 03/31/17 DICTATED BY: EULALIA CASILLAS II DATE: 03/31/17 REPORT STATUS : Draft TRANSCRIBED BY: MODL DATE: 03/31/17 DATE OF ADMISSION: 03/31/2017 PRIMARY ONCOLOGIST: Dr. Juno Aquino. CHIEF COMPLAINT: Shortness of breath. HISTORY OF PRESENT ILLNESS: The patient is a 51-year-old female with a history of COPD; chronic hypoxic respiratory failure, on 2 L; hypertension; organizing pneumonia; and recently diagnosed small cell carcinoma who presented to [facility] this morning after waking up today with severe shortness of breath and confusion. Per the family, she was started on chemotherapy about a week or two ago and has been doing well only on 2 L and getting around the house okay until this morning when she was noted to have severe respiratory distress and confusion. The family subsequently brought the patient to the ER where she was found to be in respiratory distress, hypoxic with severe diffuse wheezing and begun on breathing treatments and antibiotics given a white count of 0.5. Hospital Service was consulted for admission. Otherwise, currently, the patient notes improvement in her breathing since being in the ER. She is currently tolerating BiPAP and blood gas in the ER was fairly unremarkable with a pH of 7.46, pCO2 of 41, and a pO2 of 119 on nonrebreather. Otherwise, she denies any fevers, chills, or chest pain. Denies any nausea, vomiting, or diarrhea. She has had some upper intermittent abdominal pain, worse with movement and breathing. She is fairly confused and intermittently agitated. Most of the history was provided by the family at bedside. REVIEW OF SYSTEMS: Otherwise, fairly unobtainable except for the above history. PAST MEDICAL HISTORY: 1. Small-cell carcinoma, recently diagnosed, status post cycle 1 of chemotherapy, followed by Dr. Juno Aquino. 2. COPD with chronic respiratory failure, on 2 L O2 at home. 3. Ongoing tobacco use. 4. History of organizing pneumonia. 5. History of hypertension. 6. Gastroesophageal reflux disease. 7. Hypothyroidism. 8. Hyperlipidemia. 9. Anxiety and depression. SURGICAL HISTORY: Appendectomy, tubal ligation, and scheduled for Port-A-Cath in the coming week or two. FAMILY HISTORY: Denies any family history of cancer and otherwise unaware of the patient's parent's history. SOCIAL HISTORY: The patient denies any alcohol, but is about a 1-1/2 pack-a-day smoker. History And Physical [address] [address] NAME: KRISTEN GALVIN : 61 STATUS : ADM IN [facility]#: [id number] AGE: 51 ADM/REG DATE : 03/31/17 MR#: [id number] REPORT SERV DATE: 03/31/17 DICTATED BY: EULALIA CASILLAS II DATE: 03/31/17 REPORT STATUS : Draft TRANSCRIBED BY: LILIANA DATE: 03/31/17 Denies any drug use. She currently lives with her son and has been fairly ambulatory up until today. HOME MEDICATIONS: Albuterol, Wellbutrin, Klonopin, methadone, Zofran, Percocet, Phenergan, and Anoro Ellipta. PHYSICAL EXAMINATION: VITAL SIGNS: O2 saturations 93% on 2 to 4 L, blood pressure 99/74, temperature 98.4, pulse 128. GENERAL: The patient is alert, but only oriented to person, no acute distress. NECK: Supple. Nontender. No lymphadenopathy or thyromegaly. HEENT: Moist mucous membranes. Pupils are equal, round, and reactive to light. Conjunctivae clear. RESPIRATORY: Lungs showed diffuse end-expiratory wheezing with minimal rhonchi and mild tachypnea. CARDIOVASCULAR: Tachycardic with a regular rhythm. No murmurs, rubs, or gallops. ABDOMEN: Soft, nontender, nondistended. Normoactive bowel sounds. EXTREMITIES: No cyanosis, clubbing, or edema. SKIN: No lesions, rashes, or wounds. NEURO: No focal deficits. LABORATORY DATA: Sodium 130, potassium 4.5, chloride 93, CO2 of 31, BUN 14, creatinine 0.96, calcium 9.1, albumin 2.7. T bilirubin 1.3, alkaline phosphatase 226, ALT 30, AST 96. WBC 0.5, hemoglobin 10.6, platelets 153. ANC 90. Lactate 2. RADIOGRAPHIC DATA: Chest x-ray with similar appearance of chest with bilateral upper lobe irregular infiltrate masses superimposed upon underlying chronic lung disease. ASSESSMENT AND PLAN: The patient is a 51-year-old female with: 1. Acute on chronic hypoxic respiratory failure. 2. Acute exacerbation of chronic obstructive pulmonary disease with possible underlying pneumonia or organizing pneumonia flare. For the above, we will treat with nebulizers q.4 hours Solu-Medrol, Brovana, and Pulmicort. We will also continue the Zosyn that was started in the ER and also add vancomycin given she has been hospitalized recently and neutropenic and tachycardic, technically meeting systemic inflammatory response syndrome criteria. Concerning for a possible sepsis. 3. Small-cell carcinoma, status post cycle 1 of chemo, per Oncology note, treat supportively. 4. Neutropenia. We will monitor. 5. Metabolic encephalopathy. Advised supportive care and treat the underlying. 6. Hyponatremia. We will provide gentle IV fluids. 7. History of organizing pneumonia. 8. Hypertension. Continue home medications. 9. Lovenox for deep venous thrombosis prophylaxis. The patient is full code. History And Physical [address] [address] NAME: KRISTEN GALVIN : 61 STATUS : ADM IN [facility]#: [id number] AGE: 51 ADM/REG DATE : 03/31/17 MR#: [id number] REPORT SERV DATE: 03/31/17 DICTATED BY: EULALIA CASILLAS II DATE: 03/31/17 REPORT STATUS : Draft TRANSCRIBED BY: LILIANA DATE: 03/31/17 TARI/LILIANA Eulalia Casillas II, MD / [id number] CC: Eulalia Casillas II, MD
--- NOTE | ~2017-03-31 | DS ---
Discharge Summary [address] [place]. [address] NAME: KRISTEN GALVIN : 61 STATUS : DIS IN PAT#: [id number] AGE: 51 ADM/REG DATE : 03/31/17 MR#: [id number] REPORT SERV DATE: 04/09/17 DICTATED BY: FOX MASON DATE: 04/09/17 REPORT STATUS : Draft TRANSCRIBED BY: MODL DATE: 04/09/17 ADMISSION DATE: 03/31/2017 DISCHARGE DATE: 04/09/2017 REASON FOR ADMISSION: Updkv-oe-shstkbs COPD exacerbation and tyrug-py-nwlqfyu hypoxic respiratory failure. HISTORY OF PRESENT ILLNESS: Please refer to Dr. Casillas's history and physical dated 03/31/2017, for complete details regarding the patient's admission. In brief, the patient was admitted to the Hospitalist Service for management of her COPD exacerbation. HOSPITAL COURSE: From admission until 04/06/2017, please refer to Dr. Gutierrez's interim summary. In brief, the patient was initially admitted to the floor but then transferred to the intensive care unit for hypoxic and hypercapnic respiratory failure needing to use BiPAP. She had been weaned off BiPAP and a Precedex drip had been initiated for her encephalopathy. She had received several days doses worth of IV antibiotics along with steroids. She was eventually weaned off BiPAP and her encephalopathy had resolved and then transferred to the floor on 04/06/2017. Hospital course from 04/06/2017 to present, I assumed care of this patient from Dr. Null on 04/08/2017, at which point her COPD exacerbation had resolved. She is back to her baseline mentally. She is saturating well on 2 L, which is her baseline. Hematology/Oncology continued to follow the patient. She is now stable and ready for discharge. DISCHARGE DIAGNOSES: Narvi-dj-ruigbov hypercapnic hypoxic respiratory failure, now resolved, back to baseline 2 L nasal cannula; sjten-xt-nysttzt chronic obstructive pulmonary disease exacerbation; chronic cryptogenic organizing pneumonia; recent diagnosis of small cell lung cancer, followed by Dr. Juno Aquino; pancytopenia; acute kidney injury, now resolved; metabolic encephalopathy, likely secondary to medications, now resolved. PROCEDURES: Include consultation with [facility], intensive care unit monitoring, chest x-ray. DISCHARGE MEDICATIONS: Include prednisone 40 mg once a day for four days, Wellbutrin 150 mg at bedtime, methadone 20 mg every 12 hours, Klonopin 1 g twice a day, albuterol p.r.n., Percocet p.r.n. pain, promethazine p.r.n. nausea, Zofran p.r.n. nausea, Anoro Ellipta daily. FOLLOWUP: The patient will follow up with Dr. Juno Aquino next week. DICTATED BY: MD HATTIE Ramos/LILIANA Discharge Summary [address] [address] NAME: KRISTEN GALVIN : 61 STATUS : DIS IN PAT#: [id number] AGE: 51 ADM/REG DATE : 03/31/17 MR#: [id number] REPORT SERV DATE: 04/09/17 DICTATED BY: FOX MASON DATE: 04/09/17 REPORT STATUS : Draft TRANSCRIBED BY: LILIANA DATE: 04/09/17 Fox Mason MD / [id number] CC: MD Juno Ramos M.D.
[2017-03-31 13:15] LABS: BASOPHILS 0 %; CHLORIDE, SERUM 93 MMOL/L (96-112); EOSINOPHILS 0 %; IMMATURE GRANULOCYTES 1.9 %; LYMPHOCYTES 63.5 %; LYMPHOCYTES ABSOLUTE 0.33 10/3/uL (0.67-4.30); MEAN CORPUS HGB CONC 33.8 g/dL (32.0-36.0); MEAN CORPUSCULAR HEMOGLOB 30.6 pg (26.0-34.0); MEAN PLATELET VOLUME 9.3 fL (9.2-13.0); MONOCYTES 19.2 %; NEUTROPHILS 15.4 %; NEUTROPHILS ABSOLUTE 0.08 10/3/uL (2.02-8.40); POTASSIUM, SERUM 4.5 MMOL/L (3.5-5.3)
[2017-03-31 13:16] LABS: ER CBC TAT 0 Hrs 00 Mins; HEMATOCRIT 31.4 % (36.0-48.0); HEMOGLOBIN 10.6 g/dL (12.0-16.0); MEAN CORPUSCULAR VOLUME 90.8 fL (80-100); PLATELET COUNT 163 10/3/uL (150-400); RED CELL COUNT 3.46 10/6/uL (4.0-5.6); SODIUM, SERUM 130 MMOL/L (135-148); WHITE BLOOD CELLS 0.5 10/3/uL (4.5-10.5)
[2017-03-31 13:17] LABS: IMMATURE GRANULOCYTES ABSOLUTE 0.01 10/3/uL (0.0-0.11); MANUAL DIFF NO %
[2017-03-31 13:19] LABS: A/G RATIO 0.5 (0.7-1.9); ALBUMIN 2.7 G/DL (3.5-5.0); CALCIUM, SERUM 9.1 MG/DL (8.5-10.4); CREATININE 0.96 MG/DL (0.55-1.02); GFR AFRICAN AMERICAN 78 ML/MIN (>=60); GFR NON AFRICAN AMERICAN 68 ML/MIN (>=60); GLUCOSE, SERUM 76 MG/DL (60-99); SGOT(AST) 96 U/L (5-40); SGPT(ALT) 30 U/L (5-65); TOTAL PROTEIN 7.7 G/DL (6.0-8.5)
[2017-03-31 13:21] LABS: ALKALINE PHOSPHATASE 226 U/L (45-117); BUN (BLOOD UREA NITROGEN) 14 MG/DL (6-23); CO2 (CARBON DIOXIDE) 31 MMOL/L (24-34); TOTAL BILIRUBIN 1.3 MG/DL (0-1.2)
[2017-03-31 13:42] LABS: ER DIFF TAT 0 Hrs 26 Mins; LYMPHOCYTES 64 %; LYMPHOCYTES ABSOLUTE (CALC) 0.32 10/3/uL (0.67-4.30); MONOCYTES 18 %; MONOCYTES ABSOLUTE (CALC) 0.09 10/3/uL (0.21-1.20); NEUTROPHILS ABSOLUTE (CALC) 0.09 10/3/uL (2.02-8.40); SEGMENTED NEUTROPHIL (0) 18 %; TOTAL NUCLEATED CELLS 50
[2017-03-31 13:43] LABS: PLATELET ESTIMATE ADQ (ADEQUATE); RBC MORPHOLOGY NORM (NORMAL)
[2017-03-31 13:50] LABS: PATH REVIEW YES
[~2017-03-31 14:10] MED LIST changes: +ANOROELLIPTA INH; +ATV.5 PO; +METHATAB10 PO; +PREDNISONE PO
[2017-03-31] MEDS ORDERED: DOLOPHINE10 MG PO (14:55)
[2017-03-31] MEDS ORDERED: PERCOCET 7.5/321 TAB PO (14:56)
[2017-03-31] MEDS ORDERED: ZOFRAN8 PO (14:57)
[2017-03-31] MEDS ORDERED: PR12.5 PO (14:57)
[2017-03-31] MEDS ORDERED: ATV1 PO (14:58)
[2017-03-31] MEDS ORDERED: WELLXL150 PO (14:58)
[2017-03-31] MEDS ORDERED: ANOROELLIPTA INH (14:59)
[2017-03-31] MEDS ORDERED: PROVHFA INH (14:59)
[2017-03-31] MEDS ORDERED: SPIRIVA INH (15:00)
[2017-03-31] MEDS ORDERED: ANORO ELLIPTA (15:10)
[2017-03-31 19:09] LABS: PROCALCITONIN 49.42 ng/mL (<0.5)
[2017-04-01 04:35] LABS: BE (BASE EXCESS) -2.6 MEQ/L (0 +/- 2.5); BIPAP 14/6 cm.H2O; CARBOXYHEMOGLOBIN 0.8 % (0-3); HCO3 (ACTUAL BICARBONATE) 22.3 MEQ/L (23-27); HEMOBLOGIN CONTENT 11.9 G/DL (12-16); INSTRUMENT SERIAL # 8083; METHEMOGLOBIN 0.1 % (0-3); O2 CONTENT 16.3 VOL% (18-24); OPERATOR ID 17537; PCO2 (CO2 TENSION) 39 MMHG (35-45); PO2 (O2 TENSION) 104 MMHG (79-93); SAMPLE Arterial; pH 7.38 (7.37-7.43)
[2017-04-01 04:59] LABS: HEMOGLOBIN 8.9 g/dL (12.0-16.0); MEAN CORPUS HGB CONC 33.5 g/dL (32.0-36.0); MEAN CORPUSCULAR HEMOGLOB 30.3 pg (26.0-34.0); MEAN CORPUSCULAR VOLUME 90.5 fL (80-100); MEAN PLATELET VOLUME 9.5 fL (9.2-13.0); PLATELET COUNT 121 10/3/uL (150-400); RBC DISTRIBUTION WIDTH 13.9 % (12.0-16.0); RED CELL COUNT 2.94 10/6/uL (4.0-5.6)
[2017-04-01 05:00] LABS: HEMATOCRIT 26.6 % (36.0-48.0); MANUAL DIFF YES %; WHITE BLOOD CELLS 0.5 10/3/uL (4.5-10.5)
[2017-04-01 05:06] LABS: BUN (BLOOD UREA NITROGEN) 11 MG/DL (6-23); CALCIUM, SERUM 9.1 MG/DL (8.5-10.4); CHLORIDE, SERUM 97 MMOL/L (96-112); CO2 (CARBON DIOXIDE) 28 MMOL/L (24-34); CREATININE 0.69 MG/DL (0.55-1.02); GFR AFRICAN AMERICAN 115 ML/MIN (>=60); GFR NON AFRICAN AMERICAN 99 ML/MIN (>=60); GLUCOSE, SERUM 129 MG/DL (60-99); POTASSIUM, SERUM 4.1 MMOL/L (3.5-5.3); SODIUM, SERUM 132 MMOL/L (135-148)
[2017-04-01 06:39] LABS: BAND NEUTROPHILS 8 %; EOSINOPHILS 1 %; EOSINOPHILS ABSOLUTE (CALC) 0.01 10/3/uL (0.0-0.53); IMMATURE GRANS ABSOLUTE (CALC) 0.01 10/3/uL (0.0-0.11); LYMPHOCYTES 55 %; LYMPHOCYTES ABSOLUTE (CALC) 0.28 10/3/uL (0.67-4.30); METAMYELOCYTES 1 %; MONOCYTES 22 %; MONOCYTES ABSOLUTE (CALC) 0.11 10/3/uL (0.21-1.20); NEUTROPHILS ABSOLUTE (CALC) 0.11 10/3/uL (2.02-8.40); SEGMENTED NEUTROPHIL (0) 13 %; TOTAL NUCLEATED CELLS 100
[2017-04-01 06:41] LABS: HELMET CELLS OCC (0-2/OIF); PLATELET ESTIMATE SLT DEC (ADEQUATE); TEARDROP SHAPED RBCS OCC (0-2/OIF)
[2017-04-01 06:42] LABS: POLYCHROMASIA 1+ (2-5/OIF) (0-1/OIF); SPHEROCYTES OCC (0-2/OIF)
[2017-04-02 08:38] LABS: HEMATOCRIT 26.8 % (36.0-48.0); MEAN CORPUS HGB CONC 33.6 g/dL (32.0-36.0); MEAN CORPUSCULAR HEMOGLOB 30.7 pg (26.0-34.0); MEAN CORPUSCULAR VOLUME 91.5 fL (80-100); MEAN PLATELET VOLUME 9.8 fL (9.2-13.0); PLATELET COUNT 128 10/3/uL (150-400); RBC DISTRIBUTION WIDTH 13.8 % (12.0-16.0); RED CELL COUNT 2.93 10/6/uL (4.0-5.6)
[2017-04-02 08:43] LABS: MANUAL DIFF YES %; WHITE BLOOD CELLS 0.6 10/3/uL (4.5-10.5)
[2017-04-02 08:46] LABS: BUN (BLOOD UREA NITROGEN) 8 MG/DL (6-23); CALCIUM, SERUM 9.5 MG/DL (8.5-10.4); CHLORIDE, SERUM 100 MMOL/L (96-112); CO2 (CARBON DIOXIDE) 30 MMOL/L (24-34); CREATININE 0.56 MG/DL (0.55-1.02); GFR AFRICAN AMERICAN 123 ML/MIN (>=60); GFR NON AFRICAN AMERICAN 106 ML/MIN (>=60); GLUCOSE, SERUM 136 MG/DL (60-99); POTASSIUM, SERUM 4.3 MMOL/L (3.5-5.3); SODIUM, SERUM 132 MMOL/L (135-148)
[2017-04-02 10:06] LABS: BAND NEUTROPHILS 9 %; EOSINOPHILS 2 %; EOSINOPHILS ABSOLUTE (CALC) 0.01 10/3/uL (0.0-0.53); LYMPHOCYTES 41 %; LYMPHOCYTES ABSOLUTE (CALC) 0.25 10/3/uL (0.67-4.30); MONOCYTES 23 %; MONOCYTES ABSOLUTE (CALC) 0.14 10/3/uL (0.21-1.20); SEGMENTED NEUTROPHIL (0) 25 %; TOTAL NUCLEATED CELLS 100
[2017-04-02 10:07] LABS: PLATELET ESTIMATE SLT DEC (ADEQUATE); POLYCHROMASIA 1+ (2-5/OIF) (0-1/OIF)
[2017-04-02 10:08] LABS: TEARDROP SHAPED RBCS OCC (0-2/OIF)
[2017-04-02 10:21] LABS: ALLENS TEST Pos; BE (BASE EXCESS) 3.3 MEQ/L (0 +/- 2.5); CARBOXYHEMOGLOBIN 0.3 % (0-3); DEVICE NC; HCO3 (ACTUAL BICARBONATE) 30.9 MEQ/L (23-27); HEMOBLOGIN CONTENT 10.5 G/DL (12-16); INSTRUMENT SERIAL # 8083; METHEMOGLOBIN 0.2 % (0-3); OPERATOR ID 11901; PCO2 (CO2 TENSION) 64 MMHG (35-45); PO2 (O2 TENSION) 83 MMHG (79-93); SAMPLE Arterial
[2017-04-02 14:00] LABS: ALLENS TEST Pos; BE (BASE EXCESS) 2.7 MEQ/L (0 +/- 2.5); BIPAP 16/6 cm.H2O; CARBOXYHEMOGLOBIN 0.4 % (0-3); HCO3 (ACTUAL BICARBONATE) 29.2 MEQ/L (23-27); HEMOBLOGIN CONTENT 9.6 G/DL (12-16); INSTRUMENT SERIAL # 8083; O2 CONTENT 13.3 VOL% (18-24); PCO2 (CO2 TENSION) 55 MMHG (35-45); PO2 (O2 TENSION) 106 MMHG (79-93); SAMPLE Arterial; pH 7.34 (7.37-7.43)
[2017-04-03 06:32] LABS: HEMATOCRIT 24.5 % (36.0-48.0); MEAN CORPUS HGB CONC 32.7 g/dL (32.0-36.0); MEAN CORPUSCULAR HEMOGLOB 30.5 pg (26.0-34.0); MEAN CORPUSCULAR VOLUME 93.5 fL (80-100); MEAN PLATELET VOLUME 9.3 fL (9.2-13.0); PLATELET COUNT 124 10/3/uL (150-400); RBC DISTRIBUTION WIDTH 14.3 % (12.0-16.0); RED CELL COUNT 2.62 10/6/uL (4.0-5.6)
[2017-04-03 06:34] LABS: MANUAL DIFF YES %
[2017-04-03 06:45] LABS: BUN (BLOOD UREA NITROGEN) 8 MG/DL (6-23); CALCIUM, SERUM 9.3 MG/DL (8.5-10.4); CHLORIDE, SERUM 102 MMOL/L (96-112); CO2 (CARBON DIOXIDE) 31 MMOL/L (24-34); CREATININE 0.56 MG/DL (0.55-1.02); GFR AFRICAN AMERICAN 123 ML/MIN (>=60); GFR NON AFRICAN AMERICAN 106 ML/MIN (>=60); GLUCOSE, SERUM 106 MG/DL (60-99); POTASSIUM, SERUM 4.7 MMOL/L (3.5-5.3); SODIUM, SERUM 136 MMOL/L (135-148)
[2017-04-03 07:03] LABS: BAND NEUTROPHILS 12 %; LYMPHOCYTES 50 %; MONOCYTES 4 %; MONOCYTES ABSOLUTE (CALC) 0.04 10/3/uL (0.21-1.20); NEUTROPHILS ABSOLUTE (CALC) 0.46 10/3/uL (2.02-8.40); PLATELET ESTIMATE SLT DEC (ADEQUATE); POLYCHROMASIA 1+ (2-5/OIF) (0-1/OIF); SEGMENTED NEUTROPHIL (0) 34 %; TOTAL NUCLEATED CELLS 50
[2017-04-03 07:58] LABS: PATH REVIEW SEE PATHOLOGY REPORT
[2017-04-03 09:24] LABS: ALLENS TEST Pos; BE (BASE EXCESS) 3.5 MEQ/L (0 +/- 2.5); CARBOXYHEMOGLOBIN 0.1 % (0-3); DEVICE NC; HCO3 (ACTUAL BICARBONATE) 31.5 MEQ/L (23-27); HEMOBLOGIN CONTENT 9.5 G/DL (12-16); INSTRUMENT SERIAL # 8083; METHEMOGLOBIN 0.1 % (0-3); O2 CONTENT 13.4 VOL% (18-24); OPERATOR ID 13624; PCO2 (CO2 TENSION) 69 MMHG (35-45); PO2 (O2 TENSION) 134 MMHG (79-93); SAMPLE Arterial; pH 7.28 (7.37-7.43)
[2017-04-03 12:30] LABS: ALLENS TEST Pos; BE (BASE EXCESS) 4.3 MEQ/L (0 +/- 2.5); BIPAP 14/6 cm.H2O; CARBOXYHEMOGLOBIN 0.3 % (0-3); HCO3 (ACTUAL BICARBONATE) 30.7 MEQ/L (23-27); HEMOBLOGIN CONTENT 9.2 G/DL (12-16); INSTRUMENT SERIAL # 8083; METHEMOGLOBIN 0.2 % (0-3); OPERATOR ID 13715; PCO2 (CO2 TENSION) 56 MMHG (35-45); PO2 (O2 TENSION) 136 MMHG (79-93); SAMPLE Arterial; pH 7.35 (7.37-7.43)
[2017-04-03 17:44] LABS: ALLENS TEST Pos; BE (BASE EXCESS) 5.3 MEQ/L (0 +/- 2.5); BIPAP 14/6 cm.H2O; CARBOXYHEMOGLOBIN 0.2 % (0-3); HCO3 (ACTUAL BICARBONATE) 31.7 MEQ/L (23-27); HEMOBLOGIN CONTENT 10.8 G/DL (12-16); INSTRUMENT SERIAL # 8083; METHEMOGLOBIN 0.1 % (0-3); O2 CONTENT 15.5 VOL% (18-24); OPERATOR ID 32214; PCO2 (CO2 TENSION) 56 MMHG (35-45); PO2 (O2 TENSION) 183 MMHG (79-93); SAMPLE Arterial; pH 7.37 (7.37-7.43)
[2017-04-04 04:43] LABS: ALLENS TEST Pos; BE (BASE EXCESS) 1.1 MEQ/L (0 +/- 2.5); BIPAP 14/6 cm.H2O; CARBOXYHEMOGLOBIN 0.3 % (0-3); HCO3 (ACTUAL BICARBONATE) 26.6 MEQ/L (23-27); HEMOBLOGIN CONTENT 9.4 G/DL (12-16); INSTRUMENT SERIAL # 8083; METHEMOGLOBIN 0.2 % (0-3); O2 CONTENT 12.8 VOL% (18-24); OPERATOR ID 16469; PCO2 (CO2 TENSION) 47 MMHG (35-45); PO2 (O2 TENSION) 92 MMHG (79-93); SAMPLE Arterial; pH 7.38 (7.37-7.43)
[2017-04-04 04:58] LABS: BASOPHILS 0.4 %; BASOPHILS ABSOLUTE 0.01 10/3/uL (0.0-0.16); EOSINOPHILS 0 %; HEMOGLOBIN 9.2 g/dL (12.0-16.0); IMMATURE GRANULOCYTES 4.9 %; IMMATURE GRANULOCYTES ABSOLUTE 0.11 10/3/uL (0.0-0.11); LYMPHOCYTES 28.3 %; LYMPHOCYTES ABSOLUTE 0.64 10/3/uL (0.67-4.30); MEAN CORPUS HGB CONC 32.4 g/dL (32.0-36.0); MEAN CORPUSCULAR HEMOGLOB 30.6 pg (26.0-34.0); MEAN CORPUSCULAR VOLUME 94.4 fL (80-100); MEAN PLATELET VOLUME 8.8 fL (9.2-13.0); MONOCYTES 14.6 %; MONOCYTES ABSOLUTE 0.33 10/3/uL (0.21-1.20); NEUTROPHILS 51.8 %; NEUTROPHILS ABSOLUTE 1.17 10/3/uL (2.02-8.40); PLATELET COUNT 160 10/3/uL (150-400); RBC DISTRIBUTION WIDTH 14.1 % (12.0-16.0); RED CELL COUNT 3.01 10/6/uL (4.0-5.6)
[2017-04-04 04:59] LABS: HEMATOCRIT 28.4 % (36.0-48.0); MANUAL DIFF NO %; WHITE BLOOD CELLS 2.3 10/3/uL (4.5-10.5)
[2017-04-04 05:11] LABS: BUN (BLOOD UREA NITROGEN) 16 MG/DL (6-23); CALCIUM, SERUM 9.4 MG/DL (8.5-10.4); CHLORIDE, SERUM 102 MMOL/L (96-112); CO2 (CARBON DIOXIDE) 32 MMOL/L (24-34); CREATININE 1.04 MG/DL (0.55-1.02); GFR AFRICAN AMERICAN 71 ML/MIN (>=60); GFR NON AFRICAN AMERICAN 61 ML/MIN (>=60); GLUCOSE, SERUM 124 MG/DL (60-99); POTASSIUM, SERUM 4.6 MMOL/L (3.5-5.3); SODIUM, SERUM 138 MMOL/L (135-148)
[2017-04-05 04:18] LABS: HEMATOCRIT 28.1 % (36.0-48.0); HEMOGLOBIN 9.3 g/dL (12.0-16.0); MEAN CORPUS HGB CONC 33.1 g/dL (32.0-36.0); MEAN CORPUSCULAR HEMOGLOB 31.2 pg (26.0-34.0); MEAN CORPUSCULAR VOLUME 94.3 fL (80-100); MEAN PLATELET VOLUME 8.9 fL (9.2-13.0); PLATELET COUNT 187 10/3/uL (150-400); RBC DISTRIBUTION WIDTH 14.3 % (12.0-16.0); RED CELL COUNT 2.98 10/6/uL (4.0-5.6); WHITE BLOOD CELLS 4.1 10/3/uL (4.5-10.5)
[2017-04-05 04:19] LABS: MANUAL DIFF YES %
[2017-04-05 04:32] LABS: BUN (BLOOD UREA NITROGEN) 19 MG/DL (6-23); CALCIUM, SERUM 8.9 MG/DL (8.5-10.4); CHLORIDE, SERUM 103 MMOL/L (96-112); CO2 (CARBON DIOXIDE) 34 MMOL/L (24-34); CREATININE 1.11 MG/DL (0.55-1.02); GFR AFRICAN AMERICAN 66 ML/MIN (>=60); GFR NON AFRICAN AMERICAN 57 ML/MIN (>=60); GLUCOSE, SERUM 156 MG/DL (60-99); PHOSPHORUS, SERUM 3.9 MG/DL (2.5-4.5); POTASSIUM, SERUM 3.9 MMOL/L (3.5-5.3); SODIUM, SERUM 136 MMOL/L (135-148)
[2017-04-05 04:52] LABS: BAND NEUTROPHILS 8 %; IMMATURE GRANS ABSOLUTE (CALC) 0.53 10/3/uL (0.0-0.11); LYMPHOCYTES 14 %; LYMPHOCYTES ABSOLUTE (CALC) 0.57 10/3/uL (0.67-4.30); METAMYELOCYTES 13 %; MONOCYTES 1 %; MONOCYTES ABSOLUTE (CALC) 0.04 10/3/uL (0.21-1.20); NEUTROPHILS ABSOLUTE (CALC) 2.95 10/3/uL (2.02-8.40); SEGMENTED NEUTROPHIL (0) 64 %; TOTAL NUCLEATED CELLS 100
[2017-04-05 04:53] LABS: PLATELET ESTIMATE ADQ (ADEQUATE); RBC MORPHOLOGY NORM (NORMAL)
[2017-04-06 05:01] LABS: HEMATOCRIT 30.5 % (36.0-48.0); HEMOGLOBIN 9.9 g/dL (12.0-16.0); MEAN CORPUS HGB CONC 32.5 g/dL (32.0-36.0); MEAN CORPUSCULAR HEMOGLOB 30.5 pg (26.0-34.0); MEAN CORPUSCULAR VOLUME 93.8 fL (80-100); MEAN PLATELET VOLUME 8.5 fL (9.2-13.0); PLATELET COUNT 242 10/3/uL (150-400); RBC DISTRIBUTION WIDTH 14.5 % (12.0-16.0); RED CELL COUNT 3.25 10/6/uL (4.0-5.6)
[2017-04-06 05:03] LABS: MANUAL DIFF YES %; WHITE BLOOD CELLS 10.6 10/3/uL (4.5-10.5)
[2017-04-06 05:15] LABS: BUN (BLOOD UREA NITROGEN) 15 MG/DL (6-23); CALCIUM, SERUM 8.9 MG/DL (8.5-10.4); CHLORIDE, SERUM 98 MMOL/L (96-112); CO2 (CARBON DIOXIDE) 39 MMOL/L (24-34); CREATININE 1.08 MG/DL (0.55-1.02); GFR AFRICAN AMERICAN 68 ML/MIN (>=60); GFR NON AFRICAN AMERICAN 59 ML/MIN (>=60); GLUCOSE, SERUM 105 MG/DL (60-99); PHOSPHORUS, SERUM 3.5 MG/DL (2.5-4.5); POTASSIUM, SERUM 3.3 MMOL/L (3.5-5.3); SODIUM, SERUM 137 MMOL/L (135-148)
[2017-04-06 05:32] LABS: BAND NEUTROPHILS 8 %; IMMATURE GRANS ABSOLUTE (CALC) 1.27 10/3/uL (0.0-0.11); LYMPHOCYTES 30 %; LYMPHOCYTES ABSOLUTE (CALC) 3.18 10/3/uL (0.67-4.30); METAMYELOCYTES 10 %; MONOCYTES 2 %; MONOCYTES ABSOLUTE (CALC) 0.21 10/3/uL (0.21-1.20); MYELOCYTES 2 %; NEUTROPHILS ABSOLUTE (CALC) 5.94 10/3/uL (2.02-8.40); SEGMENTED NEUTROPHIL (0) 48 %; TOTAL NUCLEATED CELLS 100
[2017-04-06 05:33] LABS: PLATELET ESTIMATE ADQ (ADEQUATE); RBC MORPHOLOGY NORM (NORMAL)
[2017-04-07 05:34] LABS: HEMATOCRIT 30.9 % (36.0-48.0); HEMOGLOBIN 9.9 g/dL (12.0-16.0); MEAN CORPUSCULAR HEMOGLOB 30.3 pg (26.0-34.0); MEAN CORPUSCULAR VOLUME 94.5 fL (80-100); MEAN PLATELET VOLUME 8.7 fL (9.2-13.0); PLATELET COUNT 266 10/3/uL (150-400); RBC DISTRIBUTION WIDTH 14.8 % (12.0-16.0); RED CELL COUNT 3.27 10/6/uL (4.0-5.6); WHITE BLOOD CELLS 12.1 10/3/uL (4.5-10.5)
[2017-04-07 05:37] LABS: MANUAL DIFF YES %
[2017-04-07 05:46] LABS: CALCIUM, SERUM 9.1 MG/DL (8.5-10.4); CHLORIDE, SERUM 98 MMOL/L (96-112); CO2 (CARBON DIOXIDE) 38 MMOL/L (24-34); CREATININE 0.83 MG/DL (0.55-1.02); GFR AFRICAN AMERICAN 93 ML/MIN (>=60); GFR NON AFRICAN AMERICAN 81 ML/MIN (>=60); PHOSPHORUS, SERUM 3.6 MG/DL (2.5-4.5); POTASSIUM, SERUM 3.6 MMOL/L (3.5-5.3); SODIUM, SERUM 139 MMOL/L (135-148)
[2017-04-07 05:47] LABS: BUN (BLOOD UREA NITROGEN) 11 MG/DL (6-23); GLUCOSE, SERUM 145 MG/DL (60-99)
[2017-04-07 06:24] LABS: BAND NEUTROPHILS 17 %; IMMATURE GRANS ABSOLUTE (CALC) 1.69 10/3/uL (0.0-0.11); LYMPHOCYTES 15 %; LYMPHOCYTES ABSOLUTE (CALC) 1.82 10/3/uL (0.67-4.30); METAMYELOCYTES 11 %; MONOCYTES 2 %; MONOCYTES ABSOLUTE (CALC) 0.24 10/3/uL (0.21-1.20); MYELOCYTES 3 %; NEUTROPHILS ABSOLUTE (CALC) 8.35 10/3/uL (2.02-8.40); PLATELET ESTIMATE ADQ (ADEQUATE); RBC MORPHOLOGY NORM (NORMAL); SEGMENTED NEUTROPHIL (0) 52 %; TOTAL NUCLEATED CELLS 100
[2017-04-08 06:05] LABS: HEMATOCRIT 33.5 % (36.0-48.0); HEMOGLOBIN 10.6 g/dL (12.0-16.0); MEAN CORPUS HGB CONC 31.6 g/dL (32.0-36.0); MEAN CORPUSCULAR HEMOGLOB 30.1 pg (26.0-34.0); MEAN CORPUSCULAR VOLUME 95.2 fL (80-100); MEAN PLATELET VOLUME 8.8 fL (9.2-13.0); PLATELET COUNT 288 10/3/uL (150-400); RBC DISTRIBUTION WIDTH 15.2 % (12.0-16.0); RED CELL COUNT 3.52 10/6/uL (4.0-5.6); WHITE BLOOD CELLS 16.1 10/3/uL (4.5-10.5)
[2017-04-08 06:11] LABS: MANUAL DIFF YES %
[2017-04-08 06:16] LABS: ALBUMIN 2.5 G/DL (3.5-5.0); BUN (BLOOD UREA NITROGEN) 10 MG/DL (6-23); CALCIUM, SERUM 8.8 MG/DL (8.5-10.4); CHLORIDE, SERUM 100 MMOL/L (96-112); CO2 (CARBON DIOXIDE) 38 MMOL/L (24-34); CREATININE 0.89 MG/DL (0.55-1.02); GFR AFRICAN AMERICAN 86 ML/MIN (>=60); GFR NON AFRICAN AMERICAN 74 ML/MIN (>=60); PHOSPHORUS, SERUM 4.1 MG/DL (2.5-4.5); POTASSIUM, SERUM 3.4 MMOL/L (3.5-5.3); SODIUM, SERUM 143 MMOL/L (135-148)
[2017-04-08 06:17] LABS: GLUCOSE, SERUM 61 MG/DL (60-99)
[2017-04-08 07:59] LABS: BAND NEUTROPHILS 11 %; IMMATURE GRANS ABSOLUTE (CALC) 1.13 10/3/uL (0.0-0.11); LYMPHOCYTES 16 %; LYMPHOCYTES ABSOLUTE (CALC) 2.58 10/3/uL (0.67-4.30); METAMYELOCYTES 5 %; MONOCYTES 7 %; MONOCYTES ABSOLUTE (CALC) 1.13 10/3/uL (0.21-1.20); MYELOCYTES 2 %; NEUTROPHILS ABSOLUTE (CALC) 11.27 10/3/uL (2.02-8.40); PLATELET ESTIMATE ADQ (ADEQUATE); RBC MORPHOLOGY NORM (NORMAL); SEGMENTED NEUTROPHIL (0) 59 %; TOTAL NUCLEATED CELLS 100
[2017-04-08 14:59] LABS: HEMOGLOBIN 11.4 g/dL (12.0-16.0)
[2017-04-09] MEDS ORDERED: P20 PO (12:45)
[2017-06-18] MEDS ORDERED: SPIRIVA INH (09:51)
[2017-06-18] MEDS ORDERED: ACET500CAP PO (09:52)
[2017-06-18] MEDS ORDERED: ASA5GR PO (09:53)
[2017-06-18] MEDS ORDERED: HABIT21 TOP (09:54)
[2017-06-23] MEDS ORDERED: SUCR PO (17:10)
[2017-06-23] MEDS ORDERED: PROTONIX PO (17:10)
[2017-06-23] MEDS ORDERED: LEVAQUIN750 MG PO (17:18)
== END 2017-04-09 13:58 | disposition home health service (06) | DRG 189 ==
LOC: ER 14:10 → 4SO 14:53 → MIC 04-03 10:56 → 6NO 04-06 12:07
PROVIDERS: Emergency Medicine; Internal Medicine
PROC: 5A09357 Assistance with Respiratory Ventilation, Less than 24 Consecutive Hours, Continuous Positive Airway Pressure (ICD-10-PCS; principal; 2017-04-02)
DX: J96.21 Acute and chronic respiratory failure with hypoxia (principal); G93.41 Metabolic encephalopathy; J84.116 Cryptogenic organizing pneumonia; D61.810 Antineoplastic chemotherapy induced pancytopenia; N17.9 Acute kidney failure, unspecified; R65.10 Systemic inflammatory response syndrome (SIRS) of non-infectious origin without acute organ dysfunction; C34.90 Malignant neoplasm of unspecified part of unspecified bronchus or lung; J44.1 Chronic obstructive pulmonary disease with (acute) exacerbation; E87.1 Hypo-osmolality and hyponatremia; Z99.81 Dependence on supplemental oxygen; J96.22 Acute and chronic respiratory failure with hypercapnia; I10 Essential (primary) hypertension; K21.9 Gastro-esophageal reflux disease without esophagitis; E03.9 Hypothyroidism, unspecified; E78.5 Hyperlipidemia, unspecified; G89.29 Other chronic pain; F32.9 Major depressive disorder, single episode, unspecified; F41.9 Anxiety disorder, unspecified; T50.905A Adverse effect of unspecified drugs, medicaments and biological substances, initial encounter; F17.210 Nicotine dependence, cigarettes, uncomplicated; T45.1X5A Adverse effect of antineoplastic and immunosuppressive drugs, initial encounter; Z92.21 Personal history of antineoplastic chemotherapy; Z79.891 Long term (current) use of opiate analgesic
CPT/HCPCS: 36600; 71010; 71020; 80048; 80053; 80069; 80202; 82330; 82803; 82805; 82947; 83605; 83735; 84100; 84132; 84145; 84295; 85014; 85018; 85025; 87040; 87641; 93005; 94640; 94660; 94667; 96365; 96375; 97161-GP; 99285; A9270-GY; G8978-CH-GP; G8979-CH-GP; G8980-CH-GP; J1170; J2543; J2930; J3370

== ENCOUNTER 2017-04-19 12:28 | Inpatient (IN) | payer OTHER ==
--- NOTE | ~2017-04-19 | HP ---
History And Physical [address] [place]. [address] NAME: KRISTEN GALVIN : 61 STATUS : ADM IN [facility]#: [id number] AGE: 51 ADM/REG DATE : 04/19/17 MR#: [id number] REPORT SERV DATE: 04/19/17 DICTATED BY: OMARI NULL DATE: 04/19/17 REPORT STATUS : Draft TRANSCRIBED BY: MODMike DATE: 04/19/17 DATE OF ADMISSION: 04/19/2017 CHIEF COMPLAINT: Shortness of breath. HISTORY OF PRESENT ILLNESS: The patient is a 51-year-old white female, apparently presented for a routine appointment to Dr. Juno Aquino's office today who has small cell lung cancer under chemotherapy and radiation, was found to have a fever of 103 who had significant wheezing in her lungs and had neutropenia, so she was referred to the Hospitalist Service for further treatment and evaluation. When I talked to this patient, this patient was in quite distress. She was wheezing that was audible across the room. She has developed a cough that is nonproductive. She denies any blood in her sputum. She denies any chest pain. She denies any back pain. She has not had any abdominal pain, nausea, vomiting, or diarrhea. She says she did not even realize that her fever was 103. She has had some poor appetite. The last cycle of chemo was approximately one week ago. She denied any other problems or complaints. REVIEW OF SYSTEMS: A 12-point review of systems otherwise was negative. PAST MEDICAL HISTORY: Significant for small cell lung cancer, recently diagnosed COPD with chronic respiratory failure on 2 L of home O2, on going tobacco abuse, organizing pneumonia, hypertension, gastroesophageal reflux, hypothyroidism, hyperlipidemia, anxiety, and depression, PAST SURGICAL HISTORY: Significant for appendectomy, tubal ligation, and a Port-A-Cath placement. ALLERGIES: NO KNOWN DRUG ALLERGIES. HOME MEDICATIONS: An accurate list is not available, but reviewing her previous record, the patient is on methadone, oxycodone, promethazine, Zofran, Wellbutrin XL, Klonopin, albuterol, and Anoro Ellipta, and she was also on prednisone at the time of discharge the last time. SOCIAL HISTORY: This patient admits to smoking, has not smoked since her last visit to the hospital on which the discharge date was 04/09/2017. She denies alcohol, was smoking 1-1/2 pack per day. Denies use of any illicit substances. She currently lives with her son and been fairly ambulatory. PHYSICAL EXAMINATION: GENERAL: White female, lying on the bed, appears to be in dsfvqsac-gu-sznbmn respiratory distress. She is awake, alert. She is oriented. VITAL SIGNS: Blood pressure is 133/76, saturation of 94% on 3 L O2, temp is 96.3, pulse of 94. HEENT: Head is normocephalic, atraumatic. Pupils are equal, round, and reactive to light. History And Physical [address] [address] NAME: KRISTEN GALVIN : 61 STATUS : ADM IN [facility]#: [id number] AGE: 51 ADM/REG DATE : 04/19/17 MR#: [id number] REPORT SERV DATE: 04/19/17 DICTATED BY: OMARI NULL DATE: 04/19/17 REPORT STATUS : Draft TRANSCRIBED BY: LILIANA DATE: 04/19/17 Extraocular muscles are intact. Sclerae are anicteric. Conjunctivae normal. Oropharynx without lesion. Tongue protrusion midline. Uvula midline. No thrush or lesions in the oropharynx. NECK: Supple. No jugular venous distention. No carotid bruits or thyromegaly is appreciated. No lymphadenopathy in the neck is palpable. HEART: Tachycardic. No murmurs, rubs, or gallops. PMI nondisplaced. LUNGS: Diffuse bilateral inspiratory and expiratory wheezing. No evidence of any focal consolidation. No rales or crackles are noted. ABDOMEN: Soft, nontender. Good bowel sounds. No rebound or guarding. No organomegaly. EXTREMITIES: Without cyanosis, clubbing, or edema. NEUROLOGICAL: Seems to be grossly intact. LABORATORY DATA: All labs are pending at this time. IMPRESSION: 1. Acute on chronic hypoxic respiratory failure. 2. Acute exacerbation of chronic obstructive pulmonary disease. 3. Neutropenic fever. 4. Small cell lung cancer. 5. History of organizing pneumonia. 6. Hypothyroidism. 7. Hyperlipidemia. 8. Anxiety and depression. RECOMMENDATIONS/PLAN: The patient will be admitted. IV antibiotics will be initiated as broad spectrum including vancomycin and cefepime. Oncology consultation will be done. Blood cultures, urine culture, and portable chest x-ray will be obtained. Routine labs will be done. IV steroids will be started. O2 supplements will be done. Portable chest x-ray will be obtained. Aggressive nebulizing treatments. Home medications will be addressed when available from Pharmacy. KEI/LILIANA Omari Null M.D. / [id number] CC: Abby Lemus M.D.
--- NOTE | ~2017-04-19 | DS ---
Discharge Summary [id number] [place]. [address] NAME: KRISTEN GALVIN : 61 STATUS : ADM IN PAT#: [id number] AGE: 51 ADM/REG DATE : 04/19/17 MR#: [id number] REPORT SERV DATE: 04/21/17 DICTATED BY: OMARI NULL DATE: 04/21/17 REPORT STATUS : Draft TRANSCRIBED BY: MODL DATE: 04/21/17 ADMISSION DATE: 04/19/2017 DISCHARGE DATE: 04/21/2017 DISCHARGE DIAGNOSES: 1. Acute on chronic hypoxic respiratory failure, present on admission. 2. Acute exacerbation of chronic obstructive pulmonary disease. 3. Small cell lung cancer. 4. History of organizing pneumonia. 5. Neutropenic fever. 6. Hypothyroidism. 7. Hyperlipidemia. 8. Anxiety and depression. CONSULTANTS DURING THIS HOSPITALIZATION: Dr. Juno Aquino of Hematology/Oncology. INVASIVE PROCEDURES DONE DURING THIS HOSPITALIZATION: None. BRIEF HISTORY OF PRESENT ILLNESS: The patient is a 51-year-old female, recently diagnosed with small cell lung cancer, who was in the hospital with pneumonia, came in to Dr. Juno Aquino's office with hypoxia, so she was admitted. For detailed history and physical exam, please see my note dictated on 04/19/2017. HOSPITAL COURSE: After being admitted to the hospital, this patient was given broad-spectrum antibiotics. Oncology consultation was done. Blood cultures were obtained. Urine culture and portable chest x-ray were done. Her procalcitonin level remained negative. IV steroids were initiated and O2 was supplemented as needed. All her lab work remained negative. She had 50,000 colony-forming units of mixed bacterial hernando in her urine. Once again, her blood cultures remained negative except of two positive for Staph which I think is a contamination as this patient no longer had any fevers. She did have a positive urine streptococcal antigen, and we switched her antibiotics to Levaquin. Her O2 sats now remained stable on her 2 L of O2 that she normally uses at home. She is ambulatory. She feels well and is tolerating a diet and feels like she can go home and recover in the home setting. DISCHARGE DISPOSITION: Home. DISCHARGE ACTIVITY: As tolerated. DISCHARGE DIET: Low sodium diet. DISCHARGE MEDICATIONS: Wellbutrin XL 150 mg once at bedtime; methadone 20 mg q.12 hours; Levaquin 750 mg once daily for four more days; Klonopin 1 mg p.o. twice daily; Proventil one to two puffs inhalation every four hours p.r.n.; DuoNeb 3 mL every six hours via nebulizer, #120, with no refills given; Pulmicort 0.5 mg via nebulizer twice daily; prednisone 40 mg p.o. once daily for four more days; oxycodone 7.5/325 one tablet every six hours p.r.n.; Discharge Summary [address] [address] NAME: KRISTEN GALVIN : 61 STATUS : ADM IN PAT#: [id number] AGE: 51 ADM/REG DATE : 04/19/17 MR#: [id number] REPORT SERV DATE: 04/21/17 DICTATED BY: OMARI NULL DATE: 04/21/17 REPORT STATUS : Draft TRANSCRIBED BY: LILIANA DATE: 04/21/17 promethazine 12.5 mg every four hours p.r.n. for nausea; and Zofran 8 mg p.o. daily p.r.n. for nausea, DISCHARGE FOLLOWUP: With Dr. Juno Aquino in one week. More than 30 minutes spent planning this patient's discharge, reconciling medications, writing prescriptions, discussing hospital care, and followup with the patient at the bedside documenting this discharge. DICTATED BY: Abby Lemus/LILIANA Omari Null M.D. / [id number] CC: Abby Lemus M.D.
[~2017-04-19 12:28] MED LIST changes: +ANORO ELLIPTA; +ATV1 PO; +DOLOPHINE10 MG PO; +PERCOCET 7.5/321 TAB PO; +PR12.5 PO; +WELLXL150 PO; +ZOFRAN8 PO
[2017-04-19 16:12] LABS: BASOPHILS 0 %; EOSINOPHILS 0.4 %; EOSINOPHILS ABSOLUTE 0.01 10/3/uL (0.0-0.53); HEMATOCRIT 31.7 % (36.0-48.0); HEMOGLOBIN 10.1 g/dL (12.0-16.0); IMMATURE GRANULOCYTES 0.4 %; IMMATURE GRANULOCYTES ABSOLUTE 0.01 10/3/uL (0.0-0.11); LYMPHOCYTES ABSOLUTE 0.81 10/3/uL (0.67-4.30); MANUAL DIFF NO %; MEAN CORPUS HGB CONC 31.9 g/dL (32.0-36.0); MEAN CORPUSCULAR HEMOGLOB 30.1 pg (26.0-34.0); MEAN CORPUSCULAR VOLUME 94.6 fL (80-100); MONOCYTES 8.8 %; MONOCYTES ABSOLUTE 0.23 10/3/uL (0.21-1.20); NEUTROPHILS 59.4 %; NEUTROPHILS ABSOLUTE 1.55 10/3/uL (2.02-8.40); PLATELET COUNT 179 10/3/uL (150-400); RBC DISTRIBUTION WIDTH 15.3 % (12.0-16.0); RED CELL COUNT 3.35 10/6/uL (4.0-5.6); WHITE BLOOD CELLS 2.6 10/3/uL (4.5-10.5)
[2017-04-19 16:28] LABS: BUN (BLOOD UREA NITROGEN) 8 MG/DL (6-23); CALCIUM, SERUM 9.2 MG/DL (8.5-10.4); CHLORIDE, SERUM 100 MMOL/L (96-112); CREATININE 0.69 MG/DL (0.55-1.02); GFR AFRICAN AMERICAN 115 ML/MIN (>=60); GFR NON AFRICAN AMERICAN 99 ML/MIN (>=60); PHOSPHORUS, SERUM 3.2 MG/DL (2.5-4.5); SGOT(AST) 27 U/L (5-40); SGPT(ALT) 31 U/L (5-65); SODIUM, SERUM 138 MMOL/L (135-148); TOTAL BILIRUBIN 1.1 MG/DL (0-1.2); TOTAL PROTEIN 7.2 G/DL (6.0-8.5); TROPONIN I <0.02 NG/ML (<0.05)
[2017-04-19 16:29] LABS: A/G RATIO 0.8 (0.7-1.9); ALBUMIN 3.3 G/DL (3.5-5.0); ALKALINE PHOSPHATASE 153 U/L (45-117); CO2 (CARBON DIOXIDE) 33 MMOL/L (24-34); GLOBULIN 3.9 G/DL (2.5-4.1); GLUCOSE, SERUM 89 MG/DL (60-99); POTASSIUM, SERUM 4.4 MMOL/L (3.5-5.3)
[2017-04-19 17:19] LABS: PROCALCITONIN 0.14 ng/mL (<0.5)
[2017-04-19 17:47] LABS: ASCORBIC ACID (UR NOT ORDER) NEG (NEG); BILIRUBIN, URINE NEGATIVE (NEG); KETONE, URINE NEGATIVE (NEG); LEUKOCYTE ESTERASE(NOT OR SMALL (NEG); WBC (NOT ORDERED) (RFLEX) 9 (0-5)
[2017-04-20 04:28] LABS: HEMATOCRIT 32.2 % (36.0-48.0); HEMOGLOBIN 10.3 g/dL (12.0-16.0); MEAN CORPUSCULAR HEMOGLOB 30.4 pg (26.0-34.0); MEAN PLATELET VOLUME 9.4 fL (9.2-13.0); PLATELET COUNT 149 10/3/uL (150-400); RBC DISTRIBUTION WIDTH 14.8 % (12.0-16.0); RED CELL COUNT 3.39 10/6/uL (4.0-5.6)
[2017-04-20 04:30] LABS: MANUAL DIFF YES %
[2017-04-20 04:40] LABS: ALBUMIN 3.2 G/DL (3.5-5.0); BUN (BLOOD UREA NITROGEN) 12 MG/DL (6-23); CHLORIDE, SERUM 103 MMOL/L (96-112); CO2 (CARBON DIOXIDE) 31 MMOL/L (24-34); CREATININE 0.74 MG/DL (0.55-1.02); GFR AFRICAN AMERICAN 107 ML/MIN (>=60); GFR NON AFRICAN AMERICAN 92 ML/MIN (>=60); GLUCOSE, SERUM 111 MG/DL (60-99); PHOSPHORUS, SERUM 3.2 MG/DL (2.5-4.5); POTASSIUM, SERUM 4.6 MMOL/L (3.5-5.3); SODIUM, SERUM 140 MMOL/L (135-148)
[2017-04-20 04:55] LABS: BAND NEUTROPHILS 8 %; LYMPHOCYTES 17 %; LYMPHOCYTES ABSOLUTE (CALC) 0.34 10/3/uL (0.67-4.30); MONOCYTES 6 %; MONOCYTES ABSOLUTE (CALC) 0.12 10/3/uL (0.21-1.20); NEUTROPHILS ABSOLUTE (CALC) 1.54 10/3/uL (2.02-8.40); PLATELET ESTIMATE SLT DEC (ADEQUATE); RBC MORPHOLOGY NORM (NORMAL); SEGMENTED NEUTROPHIL (0) 69 %; TOTAL NUCLEATED CELLS 100
[2017-04-21 06:31] LABS: BASOPHILS 0.5 %; BASOPHILS ABSOLUTE 0.01 10/3/uL (0.0-0.16); EOSINOPHILS 1.4 %; EOSINOPHILS ABSOLUTE 0.03 10/3/uL (0.0-0.53); HEMATOCRIT 23.5 % (36.0-48.0); HEMOGLOBIN 7.6 g/dL (12.0-16.0); IMMATURE GRANULOCYTES 1.8 %; IMMATURE GRANULOCYTES ABSOLUTE 0.04 10/3/uL (0.0-0.11); LYMPHOCYTES 31.2 %; LYMPHOCYTES ABSOLUTE 0.69 10/3/uL (0.67-4.30); MEAN CORPUS HGB CONC 32.3 g/dL (32.0-36.0); MEAN CORPUSCULAR HEMOGLOB 29.8 pg (26.0-34.0); MEAN CORPUSCULAR VOLUME 92.2 fL (80-100); MEAN PLATELET VOLUME 9.8 fL (9.2-13.0); MONOCYTES ABSOLUTE 0.22 10/3/uL (0.21-1.20); NEUTROPHILS 55.1 %; NEUTROPHILS ABSOLUTE 1.22 10/3/uL (2.02-8.40); PLATELET COUNT 119 10/3/uL (150-400); RBC DISTRIBUTION WIDTH 14.6 % (12.0-16.0); RED CELL COUNT 2.55 10/6/uL (4.0-5.6); WHITE BLOOD CELLS 2.2 10/3/uL (4.5-10.5)
[2017-04-21 06:32] LABS: MANUAL DIFF NO %
[2017-04-21] MEDS ORDERED: LEVAQUIN750 MG PO (13:36)
[2017-04-21] MEDS ORDERED: COMBIVENT RESPIM4 GM INH (13:38)
[2017-04-21] MEDS ORDERED: P20 PO (13:43)
[2017-04-21] MEDS ORDERED: DUONEB INH (13:47)
[2017-04-21] MEDS ORDERED: ATV1 PO (13:49)
[2017-04-21] MEDS ORDERED: PULRESP.5 INH (13:49)
[2017-06-18] MEDS ORDERED: SPIRIVA INH (09:51)
[2017-06-18] MEDS ORDERED: ACET500CAP PO (09:52)
[2017-06-18] MEDS ORDERED: ASA5GR PO (09:53)
[2017-06-18] MEDS ORDERED: HABIT21 TOP (09:54)
[2017-06-23] MEDS ORDERED: SUCR PO (17:10)
[2017-06-23] MEDS ORDERED: PROTONIX PO (17:10)
[2017-06-23] MEDS ORDERED: LEVAQUIN750 MG PO (17:18)
== END 2017-04-21 15:26 | disposition home or self-care (01) | DRG 808 ==
LOC: 6NO 12:28
PROVIDERS: Internal Medicine
DX: D70.1 Agranulocytosis secondary to cancer chemotherapy (principal); J96.21 Acute and chronic respiratory failure with hypoxia; Z99.81 Dependence on supplemental oxygen; C34.90 Malignant neoplasm of unspecified part of unspecified bronchus or lung; J44.1 Chronic obstructive pulmonary disease with (acute) exacerbation; Z51.5 Encounter for palliative care; K21.9 Gastro-esophageal reflux disease without esophagitis; E03.9 Hypothyroidism, unspecified; E78.5 Hyperlipidemia, unspecified; F41.9 Anxiety disorder, unspecified; F32.9 Major depressive disorder, single episode, unspecified; F17.210 Nicotine dependence, cigarettes, uncomplicated; R50.81 Fever presenting with conditions classified elsewhere; T45.1X5A Adverse effect of antineoplastic and immunosuppressive drugs, initial encounter; Z87.01 Personal history of pneumonia (recurrent)
CPT/HCPCS: 71010; 80053; 80069; 81001; 83605; 83735; 84100; 84145; 84443; 84484; 85025; 87040; 87086; 87150; 87449; 93005; 94640; A9270-GY; J0692; J1170; J1956; J2920; J3370